=== PATIENT | female | born 1960 | race African-American/Black ===

== ENCOUNTER → 2018-09-17 | Day surgery (SDC) | payer MEDICARE ==
[2018-09-12 13:33] LABS: BASOPHILS % 0.8 % (0.0-1.0); EOSINOPHILS % 0.4 % (0.0-6.0); HEMATOCRIT 44.1 % (34.2-44.1); HEMOGLOBIN 14.6 g/dL (12.0-16.0); LYMPHOCYTES # (AUTO) 2.2 (1.0-3.2); LYMPHOCYTES % 45.5 % (18.0-39.1); MEAN CORPUSCULAR HEMOGLOBIN 33.1 pg (28-32); MEAN CORPUSCULAR HGB CONC 33.1 g/dL (31-35); MONOCYTES # (AUTO) 0.4 (0.2-0.8); MONOCYTES % 8.7 % (4.4-11.3); NEUTROPHILS # (AUTO) 2.1 (2.1-6.9); NEUTROPHILS % 44.4 % (38.7-80.0); PLATELET COUNT 250 x10e3/uL (140-360); RED BLOOD COUNT 4.41 x10e6/uL (3.6-5.1)
[~2018-09-17] MED LIST: ALPRAZOLAM1 MG PO; FENTANYL CITRATE/PF 100MCG/2 ML INJ ONE; LEVOCETIRIZINE D5 MG PO; LEVOTHYROXINE75 MCG PO; LIDOCAINE HCL 2% LOCAL INJ 5 ML SDV VIAL INJ ONE; MIDAZOLAM HCL 2 MG/2 ML VIAL ONE; PANTOPRAZOLE SO40 MG PO; PROPOFOL IV EMULSION 10 MG/ML 20 ML VIAL ONE; PROVENTIL HFA6.7 GM INH; VITAMIN D31000 UNIT PO
--- OUTSIDE RECORDS SUMMARY | 2018-09-17 08:51 | XMS REPORT | Clinical Summary ---
Author Author [facility] Address Unknown Phone Unavailable Care Team Providers Care Latrine Cleaner Name Role Phone PCP Unavailable Allergies Not on File Medications Not on file Active Problems Not on file Social History Date Tobacco Use Types Packs/Day Years Used Never Assessed Sex Assigned at Date Recorded Not on file Industry Job Start Date Occupation Not on file Not on file Not on file Travel End Travel History Travel Start No recent travel history available. Last Filed Vital Signs Not on file Plan of Treatment Health Maintenance Due Date Last Done Comments BREAST CANCER SCREENING 2010 COLONOSCOPY SCREENING 2010 SHINGLES VACCINES (#1) 2010 INFLUENZA VACCINE 09/26/2018 Results Not on fileafter 09/16/2017 Insurance Type Payer Benefit Subscriber ID Effective Phone Address Plan / Dates Group Medicare MEDICARE MEDICARE xxxxxxxxxx 2012- [employer] [facility], [place] AND Present [place] B Medicaid MEDICAID MEDICAID xxxxxxxxx 2013-Dom buckent (Home) [place] [address] Advance Directives Patient has advance care planning documents on file. For more information, bishop casey contact: Ron Virgen [address] [place] [address]
--- OUTSIDE RECORDS SUMMARY | 2018-09-17 08:51 | XMS REPORT | Clinical Summary ---
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 Normal None . R. First dorsal interosseous Normal 0 0 None . Normal Normal Normal Normal None . R. Rhomboid major Reduced 0 0 None . Normal Normal Normal Normal None . R. C5 paraspinal Incr 0 0 None . Normal Normal Normal Normal None . NERVE SUMMARY: Upper extremity NCS SENSORY: RIGHT MEDIAN: NORMAL PEAK LATENCY, NORMAL AMPLITUDE RIGHT ULNAR: BORDERLINE PEAK LATENCY, NORMAL AMPLITUDE, MAY BE RELATED TO TEMPERATURE. MOTOR: RIGHT MEDIAN: NORMAL ONSET LATENCY, NORMAL AMPLITUDE, NORMAL CONDUCTION VELOCITY RIGHT ULNAR: NORMAL ONSET LATENCY, NORMAL AMPLITUDE, NORMAL CONDUCTION VELOCITY MUSCLE SUMMARY: EMG Findings RIGHT ABDUCTOR POLLICIS BREVIS: NORMAL INSERTIONAL ACTIVITY, NO ABNORMAL SPONTANEOUS ACTIVITY, NORMAL RECRUITMENT, AND NORMAL MUAP POTENTIALS. RIGHT ANTERIOR DELTOIND: INCR INSERTIONAL ACTIVITY, 1+ FIBS, 3+ POSITIVE SHARP WAVES, DECR RECRUITMENT, AND NORMAL MUAP POTENTIALS RIGHT BICEPS BRACHII: INCR INSERTIONAL ACTIVITY, 2+ FIBS, 2+ POSITIVE SHARP WAVES, DECR RECRUITMENT, AND NORMAL MUAP POTENTIALS. RIGHT LATERAL TRICEPS: NORMAL INSERTIONAL ACTIVITY, NO ABNORMAL SPONTANEOUS ACTIVITY, NORMAL RECRUITMENT, AND NORMAL MUAP POTENTIALS. RIGHT FIRST DORSAL INTEROSSEOUS: NORMAL INSERTIONAL ACTIVITY, NO ABNORMAL SPONTANEOUS ACTIVITY, NORMAL RECRUITMENT, AND NORMAL MUAP POTENTIALS. RIGHT RHOMBOID: DECR INSERTIONAL ACTIVITY, NO ABNORMAL SPONTANEOUS ACTIVITY, FEW MOTOR UNITS. RIGHT C5 PARASPINAL: INCR INSERTIONAL ACTIVITY, NO ABNORMAL SPONTANEOUS ACTIVITY, NORMAL RECRUITMENT, AND NORMAL MUAP POTENTIALS. ATTENDING PHYSICIAN CONCLUSION: I WAS PRESENT FOR THE [place] PORTION OF THE NCS/EMG PROCEDURE WITH DR. VEGAS ON 12/13/17. I SAW AND EVALUATED THE PATIENT. I REVIEWED THE RESIDENT S NOTE AND AGREE. 1. ABNORMAL STUDY 2. ELECTRODIAGNOSTIC EVIDENCE SUGGESTIVE OF RIGHT CERVICAL RADICULOPATHY, PIN DATA MOST CONSISTENT WITH C5 LEVEL, CHRONIC WITH ONGOING DENERVATION AND REINNERVATION. 3. PLEASE CONSIDER ORDERING MRI OF C- SPINE AND CORRELATE. 4. NO ELECTRODIAGNOSTIC EVIDENCE OF RIGHT MEDIAN MONONEUROPATHY IN AREAS TESTED AT THIS TIME. 5. NO ELECTRODIAGNOSTIC EVIDENCE OF RIGHT UPPER EXTREMITY GENERALIZED NEUROPATHY OTHERWISE. (HX OF THYROID DZ) PLAN: FOLLOW UP WITH THE REFERRING PHYSICIAN. FACULTY: [facility] ELECTRODI[facility]NOSTIC [facility]ORATORY NORMAL REFERENCE VALUES FOR COMMON NERVE CONDUCTION STUDIES References used for this table from: 1. Noe and Ck, Manual of Nerve Conduction Studies, 2nd edition, 2006, [employer], [facility], [place] (for a complete listing please refer to this manual) and2. * Darrell Curry, and Rogerio, Electrodiagnostic Medicine, 2nd edition, 2002, [employer], [place], [place]. Skin temperature should be > 32 degrees Celsius in the upper limb and > 30 degrees Celsius in the lower limb. Final determination of normality will be made by Attending Physician taking in consideration conditions of testing. Motor Nerve Studies NerveCV(M/s)Onset latency (ms) Amplitude (mV) F-wave (ms) Axillary to Deltoid --<5.4 ms >4.6 mV-- Median to APB (8cm) >49 M/sec <4.5 ms >5 mV*<31.6 ms Musculocut.to Biceps --<5.6 ms > 4.0mV-- Radial to EDC (8cm) >54 M/sec <3.5 ms >4.3 mV-- Suprascapular (Supraspinatus) --<4.3 ms >1.6 mV-- (IS)--<4.8 ms >1.5 mV-- Ulnar to ADM (8cm) (W to BE) > 52 M/sec 2.3-4.4 ms>6.1 +/- 1.9 mV* <31.5 ms (BE to AE) > 43 M/sec Ulnar to FDI --<4.6 ms >5.1 mV-- Femoral to quads (above ligament) --<8.5 ms 0.2 11mV -- (below ligament) --<7.4 ms 0.2 11mV -- Peroneal to EDB (8cm) (ankle to fib head) >38 M/sec <6.5 ms >1.3 mV <61.2 ms (>2.6 mV if under 40 yo) (across knee) >42 M/sec Peroneal to TA >43 M/sec <4.9 ms >1.7 mV-- Tibial to AH (8cm) >39 M/sec <6.1 ms >4.4 mV<61.4 ms Sensory Nerve Studies Nerve CV (M/s) Peak latency (ms) Amplitude (V)-onset to peak Lat. antebrach.cut. --<2.5 ms >5 V Med. antebrach cut. --<2.6 ms >4 V Median to digit 2,3 (14cm) --<3.7 ms*>10 V (>15-19 V if under 50 yo) Radial to base thumb (10cm)--<2.8 ms >7 V Ulnar to digit 5 (14cm) --<3.7 ms*>6 V (>11-14 V if under 50 yo) Dorsal ulnar cut. (10cm) --<2.9 ms >5 V Comparison studies: Median/Radial to thumb --<3.1/3.0 ms>10/3 V Median/Ulnar transcarpal --<2.4/2.4 ms>10/4 V Median/Ulnar 4th digit--<4.1/3.9 ms>5/5 V Lat. fem. cut. (Spevak) >51 M/sec <6.0 ms 2.0 +/- 1.0 V Med. fem. cut.--<3.5 ms 3.4-7.9 V Superficial peroneal (14cm)--<4.2 ms 7.7 +/- 3.9 V Sural (14 cm)--<4.5 ms 10-50 V Plantar (14 cm) (Medial)--<3.7 ms 10-30 V (Lateral)--<3.7 ms 8-20 V Other Nerve Conductions Onset latency (ms) Amplitude (mV) H-reflex to FCR<18.9 ms> 0.8 mV H-reflex to gastrocnemius<35 ms -- Blink reflex(R1) <13 ms (R2 ipsi/contra)<40/41 ms Cranial VII (preauricular)2.8-4.1 ms (postauricular)3.2- 4/4 ms Cranial XI1.7-3.0 ms> 3-4 mV * OCCULT BLOOD ICT (10/26/2017 2:26 PM CDT) Occult Blood Negative [facility] ICT Specimen Stool Performing Organization Address City/State/Zipcode Phone Number [facility] * XRAY SHOULDER 2 VIEWS MIN (10/03/2017 9:13 AM CDT) Specimen Impressions Performed At IMPRESSION: SMS No acute osseous lesion. Hypertrophic acromioclavicular arthrosis. Signed By: Noel Manley MD, 10/03/2017 9:34 AM Narrative Performed At Right shoulder 2 views SMS HISTORY:57 yo female with pain at AC joint with obvious deformity for evaluation COMPARISON: None DISCUSSION: There is no displaced fracture or malalignment. Acromioclavicular arthrosis. Glenohumeral joint intact. Calcification within the axillary recess. Procedure Note Interface, Rad/Mammog In - 10/03/2017 9:39 AM CDT Right shoulder 2 views HISTORY: 57 yo female with pain at AC joint with obvious deformity for evaluation COMPARISON: None DISCUSSION: There is no displaced fracture or malalignment. Acromioclavicular arthrosis. Glenohumeral joint intact. Calcification within the axillary recess. IMPRESSION IMPRESSION: No acute osseous lesion. Hypertrophic acromioclavicular arthrosis. Signed By: Noel Manley MD, 10/03/2017 9:34 AM Performing Organization Address City/State/Zipcode Phone Number [facility] after 09/16/2017 Insurance Type Payer Benefit Subscriber ID Effective Phone Address Plan / Dates Group MEDICARE MEDICARE xxxxxxxxxxx 2012- [phone] Present [id number] [place] [address] [place] [id number] xxxxxxxxx 2013-P [id number] MEDICARE [place], [place] BENEF[place]IAR [id number] Y
--- OUTSIDE RECORDS SUMMARY | 2018-09-17 08:52 | XMS REPORT | Continuity of Care Document ---
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 HISTORY:Occasional marijuana use.Denied tobacco, alcohol OCCUPATION:unemployed PHYSICAL EXAMCONSTITUTIONAL: GEN APPREARANCE:NADVITALS:T: 98.8, P: 63, 16NECK:supple, non-tenderMUSCULOSKELETAL: DIGITS AND NAILS:- PITTING INSPECTION: -ATROPHY PALPATION: NL MUSCLE BULK ROM: Reduced abduction Right arm STRENGTH:5/5 UE TONE:NORMAL TONE GAIT:NO GAIT AID SPECIAL TESTS:- TINEL/PHALENSKIN: INSPECTION: NO RASH PALPATION: NL TURGORNEUROLOGIC: SENSATION: to light touch DTR:2+ B/L BCR, TRICEP, BICEPPSYCHIATRIC: ORIENTATION: TO NAME AND MEMORY: GOOD RECALL EVENTS MOOD / AFFECT: APPROPRIATE MD RESIDENT ETESAM DATE: 02/10/2017 5:39 PM INDICATION: trauma, pain. COMPARISON: None. TECHNIQUE:Volumetric acquisition of the cervical spine withoutcontrast. Axial, sagittal and coronal reconstructions. IV contrast: None.DLP: 182 mGy-cm FINDINGS: The spine is imaged from the skull base to the level of T1. No acute fracture or malalignment is identified. There are multileveldegenerative changes, most pronounced-severe at C6-7 with endplatesclerosis and spurring. Moderate degenerative changes at C4-5 and C5- 6.There is minimal anterolisthesis of C5 over C6 and C4 over C5. Minimalretrolisthesis of C6 over C7. Reversal of curvature of the cervicalspine. Severe facet degenerative changes seen at right C4-5 and C5-6levels. Mild facet degenerative changes at multiple levels. No soft tissue abnormality is identified.Minimal fluid in the left mastoid air cells.Impression IMPRESSION:1. No acute abnormality.2. Multilevel degenerative changes, severe at C6-7. This [facility] radiology report is a preliminary resident dictation untilfinalized by an attending.Changes to this preliminary report may occurin an additional preliminary or finalized version. Dictated By: Celso Bowles MD, 02/10/2017 6:57 PM I have reviewed the study and agree with the findings in this report. Signed By: Burton Kincaid MD, 02/10/2017 7:17 PM EDA [facility] EDX SensoryNerve / Sites Rec. Site Distance Onset Chapo Onset Lat Peak Lat Amp Temp. mm m/s ms ms V C R Median - Digit III (Antidromic) Wrist Dig III 140 48.9 2.9 3.5 22.7 32.7 R Ulnar - Digit V (Antidromic) Wrist Dig V 140 48.0 2.9 3.8 20.6 32.5 MotorNerve / Sites Rec. Site Distance Velocity Latency [...] Normal Normal Normal Normal None . NERVE SUMMARY:Upper extremity NCSSENSORY:RIGHT MEDIAN: NORMAL PEAK LATENCY, NORMAL AMPLITUDE RIGHT ULNAR: BORDERLINE PEAK LATENCY, NORMAL AMPLITUDE, MAY BE RELATED TO TEMPERATURE. MOTOR:RIGHT MEDIAN: NORMAL ONSET LATENCY, NORMAL AMPLITUDE, NORMAL CONDUCTION VELOCITYRIGHT ULNAR: NORMAL ONSET LATENCY, NORMAL AMPLITUDE, NORMAL CONDUCTION VELOCITY MUSCLE SUMMARY:EMG FindingsRIGHT ABDUCTOR POLLICIS BREVIS: NORMAL INSERTIONAL ACTIVITY, NO ABNORMAL SPONTANEOUS ACTIVITY, NORMAL RECRUITMENT, AND NORMAL MUAP POTENTIALS. RIGHT ANTERIOR DELTOIND: INCR INSERTIONAL ACTIVITY, 1+ FIBS, 3+ POSITIVE SHARP WAVES, DECR RECRUITMENT, AND NORMAL MUAP POTENTIALS RIGHT BICEPS BRACHII: INCR INSERT IONAL ACTIVITY, 2+ FIBS, 2+ POSITIVE SHARP WAVES, [...] AND EVALUATED THE PATIENT. I REVIEWED THE RESIDENTS NOTE AND AGREE. 1. ABNORMAL STUDY2. ELECTRODIAGNOSTIC EVIDENCE SUGGESTIVE OF RIGHT CERVICAL RADICULOPATHY, PIN DATA MOST CONSISTENT WITH C5 LEVEL, CHRONIC WITH ONGOING DENERVATION AND REINNERVATION.3. PLEASE CONSIDER ORD ERING MRI OF C- SPINE AND CORRELATE.4. NO ELECTRODIAGNOSTIC EVIDENCE OF RIGHT MEDIAN MONONEUROPATHY IN AREAS TESTED AT THIS TIME.5. NO ELECTRODIAGNOSTIC EVIDENCE OF RIGHT UPPER EXTREMITY GENERALIZED NEUROPATHY OTHERWISE. (HX OF THYROID DZ) PLAN: FOLLOW UP WITH THE REFERRING PHYSICIAN. FACULTY: [facility] ELECTRODIAGNOSTIC LABORATORYNORMAL REFERENCE VALUES FOR COMMON NERVE CONDUCTION STUDIESReferences used for this table from: 1. Noe and Ck, Manual of Nerve Conduction Studies, 2nd edition, 2006, [employer], [place], [place] (for a compl ete listing please refer to this manual) and2. * Darrell Curry, and Rogerio, Electrodiagnostic Medicine, 2nd edition, 2002, [employer], [place], [place].Skin temperature should be > 32 degrees Celsius in the upper limb and > 30 degrees Celsius in the lower limb.Final determination of normality will be made by Attending Physician taking in consideration conditions of testing.Motor Nerve Studies NerveCV(M/s)Onset latency (ms) Amplitude (mV) F-wave (ms)Axillary to Deltoid --4.6 mV--Median to APB (8cm) >49 M/sec 5 mV*Musculocut.to Biceps -- 4.0mV--Radial to EDC (8cm) >54 M/sec 4.3 mV--Suprascapular (Supraspinatus) --1.6 mV--(IS)--1.5 mV--Ulnar to ADM (8cm) (W to BE) > 52 M/sec 2.3-4.4 ms>6.1 +/- 1.9 mV* (BE to AE) > 43 M/secUlnar to FDI --5.1 mV--Femoral to quads (above ligament) -- (below ligament) --Peroneal to EDB (8cm) (ankle to fib head) >38 M/sec 1.3 mV (>2.6 mV if under 40 yo) (across knee) >42 M/secPeroneal to TA >43 M/sec 1.7 mV--Tibial to AH (8cm) >39 M/sec 4.4 mV Sensory Nerve StudiesNerve CV (M/s) Peak latency (ms) Amplitude (V)-onset to peakLat. antebrach.cut. --5 VMed. antebrach cut. --4 VMedian to digit 2,3 (14cm) --10 V (>15-19 V if under 50 yo)Radial to base thumb (10cm)--7 VUlnar to digit 5 (14cm) --6 V (>11-14 V if under 50 yo)Dorsal ulnar cut. (10cm) --5 VComparison studies:Median/Radial to thumb --10/3 VMedian/Ulnar transcarpal --10/4 VMedian/Ulnar 4th digit--5/5 VLat. fem. cut. (Spevak) >51 M/sec Med. fem. cut.--Superficial peroneal (14cm)--Sural (14 cm)--Plantar (14 cm) (Medial)-- (Lateral)--Other Nerve Conductions Onset latency (ms) Amplitude (mV)H-reflex to FCR 0.8 mVH-reflex to gastrocnemiusBlink reflex(R1) (R2 ipsi/contra)Cranial VII (preauricular)2.8-4.1 ms(postauricular)3.2- 4/4 msCranial XI1.7-3.0 ms> 3-4 mV 12/13/2017 [facility] OCCULT BLOOD ICT <td ID="[id number]">Occult Blood ICT</td><td>Negative</td><td>NEG</td><td>ACR HOME LAB</td><td ID="[id number]"/> Negative NEG 10/26/2017 [facility] CARDIAC ENZYMES Troponin-I <0.02 0.00 - 0.40 05/29/2017 [facility] CHEM PANEL eGFR 101 05/29/2017 Result Comment: The eGFR is calculated using the CKD-EPI formula. In most young, healthy individuals the eGFR will be >90 mL/min/1.73m2. The eGFR declines with age. An eGFR of 60-89 may be normal in some populations, particularly the elderly, for whom the CKD-EPI formula has not been extensively validated. Use of the eGFR is not recommended in the following populations:

Individuals with unstable creatinine concentrations, including patients and those with serious co-morbid conditions.

Patients with extremes in muscle mass or diet.

The data above are obtained from the National Kidney Disease Education Program (NKDEP) which additionally recommends that when the eGFR is used in patients with extremes of body mass index for purposes of drug dosing, the eGFR should be multiplied by the estimated BMI. [facility] CHEM PANEL AGAP 11.8 10.0 - 20.0 05/29/2017 [facility] CHEM PANEL Calcium Lvl 8.8 8.5 - 10.5 05/29/2017 [facility] CHEM PANEL CO2 25 24 - 32 05/29/2017 [facility] CHEM PANEL Chloride Lvl 106 95 - 109 05/29/2017 [facility] CHEM PANEL BUN 8 7 - 22 05/29/2017 [facility] CHEM PANEL Glucose Lvl 87 70 - 99 05/29/2017 [facility] CHEM PANEL Potassium Lvl 3.8 3.5 - 5.1 05/29/2017 [facility] CHEM PANEL Sodium Lvl 139 135 - 145 05/29/2017 [facility] CHEM PANEL Creatinine Lvl 0.76 0.50 - 1.40 05/29/2017 [facility] CARDIAC ENZYMES Troponin-I <0.02 0.00 - 0.40 05/29/2017 [facility] CARDIAC ENZYMES Troponin-I <0.02 0.00 - 0.40 05/28/2017 [facility] CHEM PANEL eGFR 86 05/28/2017 Result Comment: The eGFR is calculated using the CKD-EPI formula. In most young, healthy individuals the eGFR will be >90 mL/min/1.73m2. The eGFR declines with age. An eGFR of 60-89 may be normal in some populations, particularly the elderly, for whom the CKD-EPI formula has not been extensively validated. Use of the eGFR is not recommended in the following populations:

Individuals with unstable creatinine concentrations, including patients and those with serious co-morbid conditions.

Patients with extremes in muscle mass or diet.

The data above are obtained from the National Kidney Disease Education Program (NKDEP) which additionally recommends that when the eGFR is used in patients with extremes of body mass index for purposes of drug dosing, the eGFR should be multiplied by the estimated BMI. [facility] CHEM PANEL Chloride Lvl 101 95 - 109 05/28/2017 [facility] CHEM PANEL CO2 29 24 - 32 05/28/2017 [facility] CHEM PANEL Calcium Lvl 9.6 8.5 - 10.5 05/28/2017 [facility] CHEM PANEL BUN 10 7 - 22 05/28/2017 [facility] CHEM PANEL Creatinine Lvl 0.87 0.50 - 1.40 05/28/2017 [facility] CHEM PANEL Glucose Lvl 92 70 - 99 05/28/2017 [facility] CHEM PANEL Sodium Lvl 137 135 - 145 05/28/2017 [facility] CHEM PANEL Potassium Lvl 4.3 3.5 - 5.1 05/28/2017 [facility] CHEM PANEL AGAP 11.3 10.0 - 20.0 05/28/2017 [facility] HEMATOLOGY Monocytes # 0.3 0.0 - 0.8 05/28/2017 [facility] HEMATOLOGY Basophils 0.9 0.0 - 1.0 05/28/2017 [facility] HEMATOLOGY Lymphocytes # 2.1 1.0 - 5.5 05/28/2017 [facility] HEMATOLOGY Segs 39.4 45.0 - 75.0 05/28/2017 [facility] HEMATOLOGY Monocytes 8.6 2.0 - 12.0 05/28/2017 [facility] HEMATOLOGY Eosinophils 0.5 0.0 - 4.0 05/28/2017 [facility] HEMATOLOGY Lymphocytes 50.6 20.0 - 40.0 05/28/2017 [facility] HEMATOLOGY Segs-Bands # 1.6 1.5 - 8.1 05/28/2017 [facility] HEMATOLOGY MPV 7.2 7.4 - 10.4 05/28/2017 [facility] HEMATOLOGY RBC 4.35 4.20 - 5.40 05/28/2017 [facility] HEMATOLOGY WBC 4.1 3.7 - 10.4 05/28/2017 [facility] HEMATOLOGY Hct 43.2 36.0 - 48.0 05/28/2017 [facility] HEMATOLOGY Hgb 14.6 12.0 - 16.0 05/28/2017 [facility] HEMATOLOGY MCH 33.6 27.0 - 31.0 05/28/2017 [facility] HEMATOLOGY MCV 99.3 80.0 - 98.0 05/28/2017 [facility] HEMATOLOGY MCHC 33.8 32.0 - 36.0 05/28/2017 [facility] HEMATOLOGY Platelet 222 133 - 450 05/28/2017 [facility] HEMATOLOGY RDW 13.0 11.5 - 14.5 05/28/2017 [facility] BLOOD BANK RESULTS Antibody Scrn Negative (06/11/15 3:15 PM) 06/11/2015 [facility] BLOOD BANK RESULTS ABO/Rh O POS 06/11/2015 [facility] CHEM PANEL Lactic Acid Lvl 1.5 0.5 - 2.2 06/11/2015 [facility] ELECTROLYTES AGAP 13.8 10.0 - 20.0 06/11/2015 [facility] ELECTROLYTES Chloride Lvl 102 95 - 109 06/11/2015 [facility] ELECTROLYTES CO2 24 24 - 32 06/11/2015 [facility] ELECTROLYTES Calcium Lvl 9.3 8.5 - 10.5 06/11/2015 [facility] ELECTROLYTES Potassium Lvl 3.8 3.5 - 5.1 06/11/2015 [facility] ELECTROLYTES Sodium Lvl 136 135 - 145 06/11/2015 [facility] ELECTROLYTES Glucose Lvl 106 70 - 99 06/11/2015 [facility] ELECTROLYTES BUN 12 7 - 22 06/11/2015 [facility] ELECTROLYTES Creatinine Lvl 1.03 0.50 - 1.40 06/11/2015 [facility] ELECTROLYTES eGFR 71 06/11/2015 Result Comment: The eGFR is calculated using the CKD-EPI formula. In most young, healthy individuals the eGFR will be >90 mL/min/1.73m2. The eGFR declines with age. An eGFR of 60-89 may be normal in some populations, particularly the elderly, for whom the CKD-EPI formula has not been extensively validated. Use of the eGFR is not recommended in the following populations:

Individuals with unstable creatinine concentrations, including patients and those with serious co-morbid conditions.

Patients with extremes in muscle mass or diet.

The data above are obtained from the National Kidney Disease Education Program (NKDEP) which additionally recommends that when the eGFR is used in patients with extremes of body mass index for purposes of drug dosing, the eGFR should be multiplied by the estimated BMI. [facility] HEMATOLOGY Max Amp 66 52 - 71 06/11/2015 [facility] HEMATOLOGY G-value 9.9 5.0 - 11.6 06/11/2015 [facility] HEMATOLOGY Estimated % Lysis Rapid 2.7 0.0 - 7.5 06/11/2015 [facility] HEMATOLOGY Angle 79 64 - 80 06/11/2015 [facility] HEMATOLOGY ACT (TEG) Rapid 113 86 - 118 06/11/2015 [facility] HEMATOLOGY Rapid TEG Sample Type Citrated Whole Blood (06/11/15 2:40 PM) 06/11/2015 [facility] HEMATOLOGY R-time 0.7 0.4 - 0.7 06/11/2015 [facility] HEMATOLOGY [place] Rapid 0.6 06/11/2015 [facility] HEMATOLOGY K-time 0.8 0.6 - 2.3 06/11/2015 [facility] HEMATOLOGY MPV 7.3 7.4 - 10.4 06/11/2015 [facility] HEMATOLOGY WBC 5.6 3.7 - 10.4 06/11/2015 [facility] HEMATOLOGY MCH 32.9 27.0 - 31.0 06/11/2015 [facility] HEMATOLOGY RBC 4.64 4.20 - 5.40 06/11/2015 [facility] HEMATOLOGY RDW 12.7 11.5 - 14.5 06/11/2015 [facility] HEMATOLOGY MCHC 32.8 32.0 - 36.0 06/11/2015 [facility] HEMATOLOGY MCV 100.2 80.0 - 98.0 06/11/2015 [facility] HEMATOLOGY Hct 46.5 36.0 - 48.0 06/11/2015 [facility] HEMATOLOGY Platelet 233 133 - 450 06/11/2015 [facility] HEMATOLOGY Hgb 15.3 12.0 - 16.0 06/11/2015 [facility] HEMATOLOGY Macrocyte 1+ *ABN* (06/11/15 2:40 PM) None Seen 06/11/2015 [facility] HEMATOLOGY Basophils # 0.1 0.0 - 0.2 06/11/2015 [facility] HEMATOLOGY Basophils 1.0 0.0 - 1.0 06/11/2015 [facility] HEMATOLOGY Eosinophils 0.6 0.0 - 4.0 06/11/2015 [facility] HEMATOLOGY Monocytes 6.3 2.0 - 12.0 06/11/2015 [facility] HEMATOLOGY Lymphocytes 36.6 20.0 - 40.0 06/11/2015 [facility] HEMATOLOGY Segs 55.5 45.0 - 75.0 06/11/2015 [facility] HEMATOLOGY Monocytes # 0.4 0.0 - 0.8 06/11/2015 [facility] HEMATOLOGY Segs-Bands # 3.1 1.5 - 8.1 06/11/2015 [facility] HEMATOLOGY Lymphocytes # 2.0 1.0 - 5.5 06/11/2015 [facility] TOXICOLOGY Etoh (%) <0.003 06/11/2015 [facility] TOXICOLOGY Ethanol Lvl <3 06/11/2015 [facility] Pathology Reports No Data Provided for This Section Diagnostic Reports Report Value Date Source Abdomen wo contrast MRI EXAM: MR ABDOMEN WITHOUT CONTRAST-MRCP DATE: 12/22/2017 12:24 PM CDT INDICATION: - dilated pancreatic duct ADDITIONAL INFORMATION: None. COMPARISON: CT abdomen 11/08/2017 at 06/11/2015. TECHNIQUE: Multiplanar, multisequence acquisition of the abdomen without intravenous contrast, per MRCP protocol. IV contrast: None. Enteric contrast: None. FINDINGS: Lines, tubes and hardware: None. Lower thorax: Clear. Hepatobiliary: Liver: Normal. Gallbladder and cystic duct: Normal. Intrahepatic bile ducts: Normal. Extrahepatic bile duct: Normal. CBD measures up to 6 mm in diameter. Pancreas: Normal. Pancreatic duct is dilated in the head and proximal body, measuring up to 7 mm in diameter. There is no duct cut off or intraductal calculus. There is thinning of parenchyma in this region(better appreciated on recent CT scan).. A dilated side branch duct is seen in the tail region. No focal mass or inflammatory changes. Spleen: Normal. Adrenals: Normal. Kidneys and ureters: Normal. Gastrointestinal tract: Normal caliber. Peritoneum, mesentery and retroperitoneum: No free air, ascites or loculated fluid. Lymph nodes: Normal. Vasculature: Normal. Bones: Normal. Soft tissues: Normal. IMPRESSION: 1. Dilated main pancreatic duct in the head and proximal body is unchanged since 06/11/2015 CT. It is likely due to scarring from chronic pancreatitis given the adjacent focal pancreatic atrophy and dilated side branch duct in the pancreatic tail. However main duct IPMN may have a similar appearance and can be ruled out by endoscopic ultrasound. 12/22/2017 [facility] Abdomen/Pelvis w/wo IV contrast CT EXAM: CT ABDOMEN AND PELVIS WITHOUT AND WITH CONTRAST DATE: 11/08/2017 2:02 PM CDT INDICATION: - dilated pancreatic duct COMPARISON: 06/11/2015 TECHNIQUE: Volumetric CT acquisition of the abdomen and pelvis before and after the intravenous administration contrast. Axial, coronal and sagittal reconstructions. IV contrast: 100 mL Omnipaque 350 Oral contrast: 50 mL of Volumen DLP: 1468.28 mGy-cm FINDINGS: Lines and tubes: None. Liver: Normal. Biliary tree: There is mild prominence of the central biliary collecting system, especially the left duct which measures 3.5 mm just proximal to the arnulfo hepatis. The extrahepatic common bile duct in the pancreatic head is 6.5 mm in diameter (series 4 image 45). More distally in the pancreatic head the common bile duct is 4.6 mm in diameter. The pancreatic duct in the pancreas in the distal body is 5.7 mm in AP dimension. The pancreatic duct in the pancreatic tail is 1.6 mm in diameter. Gallbladder: Normal. No CT evidence of gallstones. Pancreas: There is no focal pancreatic mass to account for the ductal dilatation. There is no peripancreatic inflammatory change. Spleen: The spleen is normal. Adrenals: Normal. Kidneys and ureters: Normal. Bladder: Normal. Reproductive organs: No CT abnormality. Gastrointestinal tract: Normal caliber. Appendix: Normal Peritoneum and retroperitoneum: No lymphadenopathy, ascites or free air. No other fluid collection. Vasculature: There are prominent calcifications in the thakkar of the distal abdominal aorta without aneurysm. The calcifications extend into the iliac systems. Bones: There are mild degenerative changes in the lumbar spine. These are most prominent at L5-S1 where there is endplate sclerosis and disc space loss. Small osteophytes are present multiple levels. No suspicious lytic or blastic lesions are present. Lower thorax: Clear. Soft tissues: Normal. IMPRESSION: 1. There is definite ductal dilatation in the pancreas within the head and neck region. There are etiology for this dilatation is not evident. There is also dilatation of the common bile duct distally and within the pancreatic head, and there is no obvious etiology for this as well. Suggest correlate clinically for any laboratory abnormalities related to the liver or gallbladder. If further evaluation is needed, an MRCP with gadolinium enhanced images of the pancreas are suggested. Alternatively consult with gastroenterology for possible ERCP and endoscopic ultrasound with biopsy of any suspicious mass. 11/08/2017 [facility] XRAY SHOULDER 2 VIEWS MIN IMPRESSION: No acute osseous lesion. Hypertrophic acromioclavicular arthrosis. Signed By: Noel Manley MD, 10/03/2017 9:34 AM Right shoulder 2 views HISTORY:57 yo female with pain at AC joint with obvious deformityfor evaluation COMPARISON: None DISCUSSION:There is no displaced fracture or malalignment.Acromioclavicular arthrosis. Glenohumeral joint intact.Calcification within the axillary recess. Interface, Rad/Mammog In - 10/03/2017 9:39 AM CDTRight shoulder 2 views HISTORY: 57 yo female with pain at AC joint with obvious deformity for evaluation COMPARISON: None DISCUSSION: There is no displaced fracture or malalignment. Acromioclavicular arthrosis. Glenohumeral joint intact. Calcification within the axillary recess. IMPRESSION IMPRESSION: No acute osseous lesion. Hypertrophic acromioclavicular arthrosis. Signed By: Noel Manley MD, 10/03/2017 9:34 AM 10/03/2017 [facility] Shoulder series DX EXAM: XR RIGHT SHOULDER 3 VIEWS DATE: 09/04/2017 2:24 PM CDT INDICATION: - shoulder pain COMPARISON: None. TECHNIQUE: AP views in internal and external rotation, and an axillary view of the shoulder FINDINGS: No acute fracture or malalignment is identified. There is sclerosis and subchondral cystic change at the acromioclavicular joint. Spur is noted at the undersurface of the acromion. Small calcification noted along the inferior glenoid neck. IMPRESSION: No acute abnormality in the right shoulder joint. Moderate-severe right acromioclavicular joint osteoarthrosis. Small spur on the undersurface of the acromion predisposing to rotator cuff pathology. 09/04/2017 [facility] Abdomen complete US EXAM: US ABDOMEN COMPLETE DATE: 08/14/2017 10:14 AM CDT INDICATION: - R10.13 Epigastric pain COMPARISON: None. TECHNIQUE: Multiplanar grayscale and color Doppler ultrasound images of the abdomen. FINDINGS: Liver: Liver is normal in size measuring 14.9 cm and demonstrates normal echogenicity. Portal vein: 1.3 cm with normal directional blood flow Bile ducts: Common bile duct diameter: 0.6 cm. Intrahepatic ducts: Nondilated Gallbladder:Normal Pancreas: Head and uncinate process: No focal lesions. Main pancreatic duct is dilated measuring at 5 mm. Body and tail: Not seen. Spleen: Craniocaudal length: 7.9 cm. Mass or focal lesion (size and location): None. Right kidney: Hydronephrosis: None Size: 9.6 x 4.3 x 5.5 cm. Echogenicity: Normal. Mass/Stone/Cyst (size and location): None. Left kidney: Hydronephrosis: None Size: 10.6 x 5 x 4.8 cm. Echogenicity: Normal. Mass/Stone/Cyst (size and location): None. Abdominal aorta and IVC: Visualized portions are normal. Ascites: None. IMPRESSION: 1. Dilated main pancreatic duct measuring at 5 mm. Correlate for chronic pancreatitis. 08/14/2017 [facility] Chest 2 views DX EXAM: XR CHEST 2 VIEWS DATE: 05/28/2017 at 1155 hours INDICATION: chest pain COMPARISON: 06/11/2015 TECHNIQUE: PA and lateral chest radiographs FINDINGS: Lines, tubes and hardware: None. Lungs and pleura: A calcified granuloma is again identified within the left midlung. The lungs are mildly hyperinflated. Otherwise no pulmonary or pleural based abnormality is identified. Pulmonary vascularity is normal. Heart and mediastinum: The heart size is at the upper limits of normal, unchanged. The mediastinal contours are normal. Bones: No acute bony abnormality is identified. IMPRESSION: Hyperinflated lungs with borderline heart size. No acute abnormality. 05/28/2017 [facility] Knee 3 views DX EXAM: XR RIGHT KNEE 3 VIEWS EXAM: RIGHT TIBIA-FIBULA 2 VIEWS DATE: 06/11/2015 2:13 PM CDT INDICATION: Pain Post Trauma COMPARISON: None TECHNIQUE: AP, lateral and oblique radiographs of the right knee. AP and lateral radiographs of the right tibia-fibula. FINDINGS: No acute fracture or malalignment is identified in the right knee, tibia or fibula. Chronic appearing ossific densities inferior medial to the medial malleolus likely represent old, ununited avulsed fracture fragments. Subchondral sclerosis of the tibiotalar joint with osteophyte formation is also noted. At the knee, tricompartment small osteophytes are present, with medial compartment joint space narrowing without subarticular sclerosis or cystic change. There is no excessive knee or ankle joint fluid. No soft tissue abnormality is identified. IMPRESSION: 1. No acute bone abnormality. 2. 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 3. Right knee tricompartmental osteoarthrosis, most notably moderate in the medial compartment. 06/11/2015 [facility] Chest 1view DX EXAM: XR CHEST 1 VIEW DATE: 06/11/2015 2:12 PM CDT INDICATION: Pain Post Trauma COMPARISON: Chest CT of the same date TECHNIQUE: AP chest FINDINGS: Lines and tubes: None. Lungs and pleura: Calcified left lower lobe granuloma is noted in the left midlung. The right upper lobe pulmonary nodule is not well visualized radiographically. Remainder of the lungs are clear. No pleural effusion or pneumothorax. Heart and mediastinum: The heart size is normal for technique. The mediastinal contours are normal. Bones: No acute bony abnormality is identified. IMPRESSION: 1. No acute cardiopulmonary abnormality. 2. Right upper lobe pulmonary nodule seen on the same date chest CT is not visualized radiographically. 06/11/2015 [facility] Tibia fibula series DX EXAM: XR RIGHT KNEE 3 VIEWS EXAM: RIGHT TIBIA-FIBULA 2 VIEWS DATE: 06/11/2015 2:13 PM CDT INDICATION: Pain Post Trauma COMPARISON: None TECHNIQUE: AP, lateral and oblique radiographs of the right knee. AP and lateral radiographs of the right tibia-fibula. FINDINGS: No acute fracture or malalignment is identified in the right knee, tibia or fibula. Chronic appearing ossific densities inferior medial to the medial malleolus likely represent old, ununited avulsed fracture fragments. Subchondral sclerosis of the tibiotalar joint with osteophyte formation is also noted. At the knee, tricompartment small osteophytes are present, with medial compartment joint space narrowing without subarticular sclerosis or cystic change. There is no excessive knee or ankle joint fluid. No soft tissue abnormality is identified. IMPRESSION: 1. No acute bone abnormality. 2. 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 3. Right knee tricompartmental osteoarthrosis, most notably moderate in the medial compartment. 06/11/2015 [facility] Chest/Abdomen/Pelvis w IV contrast CT EXAM: CT CHEST WITH CONTRAST EXAM: CT ABDOMEN AND PELVIS WITH CONTRAST DATE: 06/11/2015 2:12 PM CDT INDICATION: Pain Post Trauma COMPARISON: None. TECHNIQUE: Volumetric CT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
--- OUTSIDE RECORDS SUMMARY | 2018-09-17 08:53 | XMS REPORT | Clinical Summary ---
Author Author [facility] Organization [facility] Address Unknown Phone Unavailable Care Team Providers Care Bread Wrapper Operator Name Role Phone Izzy Fang MD PCP [...] by mouth 3 Essential hypertension, daily. benign 09/05/2017 Discontinued traMADol (ULTRAM) 50 mg Take 1 tablet 90 tablet 2 tabletIndications: by mouth 3 Unspecified every 8 hours hypothyroidism, Back pain as needed for Pain. 09/15/2017 tiZANidine (ZANAFLEX) 4 Take 1 tablet 30 tablet 0 mg tabletIndications: by mouth 3 8 Acute neck pain times daily for 10 days. 10/03/2017 Discontinued Meloxicam 7.5 mg Take 7.5 [...] End Date Other Facility Date Administered Medication Discontinued ketorolac (TORADOL) 30 mg IV PUSH ONCE 09/08/19 injection 30 18 8 mgIndications: Torticollis, spasmodic, Patient receives primary care from outside this practice Ended ketorolac (TORADOL) 30 mg IM ONCE 09/08/19 injection 30 18 8 mgIndications: Torticollis, spasmodic Ended triamcinolone acetonide 40 mg IX ONCE 10/27/19 (KENALOG-40) injection 40 18 8 mgIndications: Synovitis of right knee, Synovitis of left knee Ended lidocaine 1 % (XYLOCAINE) 1 mL IJ ONCE 10/27/19 injection 1 18 8 mLIndications: Synovitis of right knee, Synovitis of left knee Active Problems Problem Noted Date Decreased functional [...] Encounters Care Team Description Date Type Specialty Tito Blanco PT Chronic neck pain (Primary [...] right shoulder 07/04/2018 Therapy Physical Therapy 07/04/2018 Travel Tito Blanco PT Decreased functional mobility and endurance; Chronic neck pain; Decreased range of motion of right shoulder 06/20/2018 Therapy Physical Therapy 06/20/2018 Travel Izzy Fang MD Cervical radiculopathy at C5 06/04/2018 Refill [facility] Tito Blanco PT Decreased functional mobility and endurance (Primary Dx); Chronic neck pain; Decreased range of motion of right shoulder 05/23/2018 Therapy Physical Therapy 05/23/2018 Travel Francis, Habeeblai, PT Decreased functional mobility and endurance (Primary Dx); Chronic neck pain; Decreased range of motion of right shoulder 04/25/2018 Therapy Physical Therapy Tito Blanco, PT Decreased functional mobility and endurance (Primary Dx); Chronic neck pain; Decreased range of motion of right shoulder 04/04/2018 Therapy Physical Therapy 04/04/2018 Travel Tito Blanco, PT Decreased functional mobility and endurance (Primary Dx); Chronic neck pain; Decreased range of motion of right shoulder 03/28/2018 Therapy Physical Therapy FrancisShandraeeopal, PT Decreased functional mobility and endurance (Primary Dx); Chronic neck pain; Decreased range of motion of right shoulder 03/14/2018 Therapy Physical Therapy 03/14/2018 Travel Tito Blanco, PT Decreased functional mobility and endurance (Primary Dx); Chronic neck pain; Decreased range of motion of right shoulder 02/21/2018 Therapy Physical Therapy Tito Blanco, PT Decreased functional mobility and endurance (Primary Dx); Chronic neck pain; Decreased range of motion of right shoulder 02/14/2018 Therapy Physical Therapy Tito Blanco, PT Decreased functional mobility and endurance (Primary [...] Procedure Visit [facility] MD Pettis, Renee D, PA Synovitis of [...] both knees 10/03/2017 Orders Only Family Practice Izzy Fang MD Torticollis, spasmodic (Primary Dx); Patient receives primary care from outside this practice 09/07/2017 Office Visit Family Practice Jose Platt RN Shoulder Pain (ask my nurse request ) 09/07/2017 Telephone Family Practice Grace David RN 09/06/2017 Nurse Triage Chris Talbot MD Rode, Rashmi, MD Acute neck pain (Primary Dx); S/P thyroidectomy; Patient receives primary care from outside this practice 09/05/2017 Office Visit Family Practice after 08/25/2017 Immunizations Name Administration Dates Next Due Influenza [...] Signs Reading Time Taken Comments Vital Sign 139/78 08/19/2018 12:01 PM CDT Blood Pressure 55 08/19/2018 12:01 PM CDT Pulse 36.8 C (98.3 F) 08/19/2018 12:01 PM CDT Temperature 18 08/19/2018 12:01 PM CDT Respiratory Rate - - Oxygen Saturation - - Inhaled Oxygen Concentration 66.7 kg (147 lb) 08/19/2018 12:01 PM CDT Weight 172.7 cm (5' 8") 08/19/2018 12:01 PM CDT Height 22.35 08/19/2018 12:01 PM CDT Body Mass Index Plan of Treatment Care Team Description Date Type Specialty Cristina-Rolnad Avila MD [address] [place], [place] [id number] 10/11/2018 Office Visit Family Practice Health Maintenance Due Date Last Done Comments [...] Comments Procedure Name Priority Date/Time Associated Diagnosis EMG CONSULT Routine 12/13/2017 Right arm weakness [...] of 9:13 AM CDT right shoulder after 08/25/2017 Results * EMG CONSULT (12/13/2017 1:00 PM CDT) Narrative Performed At Janine David MD 12/14/2017 11:34 AM [facility], DEPT PMR [address] [place] [address] ELECTROMYOGRAPHY REPORT NAME : GAIL HENDERSON GENDER: [...] to lifting heavy potato sacks while in assisted.+ tingling, numbness in Right finger tips.+ neck [...] UP WITH THE REFERRING PHYSICIAN. FACULTY: [facility] ELECTRODIAGNOSTIC LABORATORY NORMAL REFERENCE VALUES FOR COMMON NERVE CONDUCTION STUDIES References used for this table from: 1. Noe and Ck, Manual of Nerve Conduction Studies, 2nd edition, 2006, [employer], [place], [place] (for a complete listing please refer to this manual) and2. * Darrell Curry, and Rogerio, Electrodiagnostic Medicine, 2nd edition, 2002, [employer], [place], [place]. Skin temperature should be > 32 [...] At Janine David MD 12/14/2017 11:34 AM [facility], DEPT PMR [address] [place] [address] ELECTROMYOGRAPHY REPORT NAME : GAIL HENDERSON GENDER: [...] to lifting heavy potato sacks while in assisted.+ tingling, numbness in Right finger tips.+ neck [...] Multilevel degenerative changes, severe at C6-7. This [facility] radiology report is a preliminary resident dictation until finalized by an attending.Changes to this preliminary report may occur in an additional preliminary or finalized version. Dictated By: Celso Bowles MD, 02/10/2017 6:57 PM I have reviewed the study and agree with the findings in this report. Signed By: Burton Kincaid MD, 02/10/2017 7:17 PM [facility] Sensory Nerve / Sites Rec. [...] UP WITH THE REFERRING PHYSICIAN. FACULTY: [facility] ELECTRODIAGNOSTIC LABORATORY NORMAL REFERENCE VALUES FOR COMMON NERVE CONDUCTION STUDIES References used for this table from: 1. Noe and Ck, Manual of Nerve Conduction Studies, 2nd edition, 2006, [employer], [place], [place] (for a complete listing please refer to this manual) and2. * Darrell Curry, and Rogerio, Electrodiagnostic Medicine, 2nd edition, 2002, [employer], [place], [place]. Skin temperature should be > 32 [...] 2:26 PM CDT) Occult Blood Negative [facility] ICT Specimen Stool Performing Organization Address City/State/Zipcode Phone Number [facility] * ARTHROCENTESIS -ASPIRATION/INJECTION, MAJOR JOINT (10/26/2017 11:49 AM CDT) Only the most recent of 2 results within the time period is included. Narrative Performed At Carleen Mckay, [facility] 10/26/20172:23 PM Arthrocentesis -Aspiration/Injection, Major Joint Date/Time: 10/26/2017 11:52 AM Performed by: CARLEEN MCKAY Authorized by: TO BAI Indications: pain Body area: knee Joint: right knee Local anesthesia used: no Anesthesia: Local anesthesia used: no Sedation: Patient sedated: no Preparation: Patient was prepped and draped in the usual sterile fashion. Ultrasound guidance: no Approach: medial Triamcinolone amount: 40 mg Lidocaine 1% amount: 1 mL Patient tolerance: Patient tolerated the procedure well with no immediate complications * XRAY SHOULDER 2 VIEWS MIN (10/03/2017 9:13 AM CDT) Specimen Impressions Performed At IMPRESSION: [facility] No acute osseous lesion. Hypertrophic acromioclavicular arthrosis. [...] AM Performing Organization Address City/State/Zipcode Phone Number [facility] after 08/25/2017 Insurance Type Payer Benefit Subscriber ID Effective Phone Address Plan / Dates Group MEDICARE MEDICARE xxxxxxxxxxx 2012- [phone] [address] Present [id number] [place] [address] [place] MEDICA[place] [id number] xxxxxxxxx 2013-P [phone] [id number] MEDICARE [place], [place] BENEFICIAR [phone] Y
--- OUTSIDE RECORDS SUMMARY | 2018-09-17 08:53 | XMS REPORT | Clinical Summary ---
Author Author [facility] Organization [facility] Address Unknown Phone Unavailable Care Team Providers Care Medical Instrument Technician Name Role Phone Izzy Fang MD PCP [...] shoulder pain, unspecified chronicity Active gabapentin (NEURONTIN) Take 1 90 capsule 1 100 mg capsule by 8 capsuleIndications: mouth 3 times Cervical radiculopathy at daily. C5 10/03/2017 Discontinued amLODIPine (NORVASC) 5 mg [...] 8 Primary osteoarthritis of daily. both knees Status Hospital, Clinic, or Ordered Dose Route [...] left knee Active Problems Problem Noted Date Right shoulder pain 10/03/2017 Overweight 10/03/2017 Patient [...] Description Date Type Specialty Tito Blanco PT Decreased functional mobility and [...] Synovitis of left knee 10/26/2017 Office Visit [facility] Patricia Bunch Screen for colon cancer 10/26/2017 Orders Only [facility] Izzy Fang MD Right arm weakness (Primary Dx); Right shoulder pain, unspecified chronicity; Screen for colon cancer 10/18/2017 Office Visit [facility] Gabrielle Wheat PA Pain and swelling of right shoulder 10/03/2017 Ancillary Radiology Procedure Gabrielle Wheat PA Primary osteoarthritis of both knees (Primary Dx); Patient receives primary care from outside this practice; Right shoulder pain, unspecified chronicity; Essential hypertension, benign; Dietary counseling for Above Normal BMI; Overweight; BMI 26.0-26.9,adult 10/03/2017 Office Visit [facility] Gabrielle Wheat PA Primary osteoarthritis of both knees 10/03/2017 Orders Only [facility] Izzy Fang MD Torticollis, spasmodic (Primary Dx); Patient receives primary care from outside this practice 09/07/2017 Office Visit [facility] Jose Platt RN Shoulder Pain (ask my nurse request ) 09/07/2017 Telephone [facility] Grace David RN 09/06/2017 Nurse Triage Chris Talbot MD Rode, Rashmi, MD Acute neck pain (Primary Dx); S/P thyroidectomy; Patient receives primary care from outside this practice 09/05/2017 Office Visit Family Practice after 04/17/2017 Immunizations Name Dates Previously Given Next Due Influenza Vaccine 03/12/2013, 04/08/2012, 12/14/2010 [...] Counseling Given: No Comments: former smoker Alcohol Use Drinks/Week oz/Week Comments No Sex Assigned at Date Recorded Not on file Industry Job Start Date Occupation Not on file Not on file Not on file Travel End Travel History Travel Start No recent travel history available. Last Filed Vital Signs Time Taken Vital Sign Reading 01/08/2018 10:19 AM COACH CLEANER Blood Pressure 117/77 01/08/2018 10:19 AM COACH CLEANER Pulse 67 01/08/2018 10:19 AM COACH CLEANER Temperature 36.9 C (98.5 F) 01/08/2018 10:19 AM COACH CLEANER Respiratory Rate 18 - Oxygen Saturation - - Inhaled Oxygen - Concentration 01/08/2018 10:19 AM COACH CLEANER Weight 75.3 kg (166 lb) 01/08/2018 10:19 AM COACH CLEANER Height 172.7 cm (5' 8") 01/08/2018 10:19 AM COACH CLEANER Body Mass Index 25.24 Plan of Treatment Care Team Description Date Type Specialty Tito Blanco, TRISTA 04/25/2018 Therapy Physical Therapy Health Maintenance Due Date Last Done Comments Cervical Cancer Scrn (3 12/28/2013 12/28/2010 (Previously completed - Yrs) External) Breast Cancer Scrn 05/03/2018 05/03/2017, 05/28/2012, 04/08/2012, (Yearly) Additional history exists Colorectal Cancer Scrn 10/26/2018 10/26/2017, 04/08/2012 (Declined), Annual (FIT/FOBT) Age 50 11/03/2008, Additional history exists to 75 Goals Goal Patient Associated Recent Progress Patient-Stat Author Goal Type Problems ed? Exercise Regularly Self Susana Camarena management GEORGE Jackson Procedures Comments Procedure Name Priority Date/Time Associated Diagnosis EMG CONSULT Routine 12/13/2017 Right arm weakness 1:00 PM CDT NEEDLE EMG, 1 EXTREMITY Routine 12/13/2017 Right arm weakness 1:00 PM CDT OCCULT BLOOD ICT Routine 10/26/2017 Screen for colon cancer 2:26 [...] of 9:13 AM CDT right shoulder after 04/17/2017 Results * EMG CONSULT (12/13/2017 1:00 PM CDT) Narrative Performed At Janine David MD 12/14/2017 11:34 AM [facility], DEPT PMR [address] [place] [place] [address] ELECTROMYOGRAPHY REPORT NAME : GAIL HENDERSON GENDER: [...] to lifting heavy potato sacks while in [facility].+ tingling, numbness in Right finger tips.+ neck [...] Multilevel degenerative changes, severe at C6-7. This [facility] radiology report is a preliminary resident [...] UP WITH THE REFERRING PHYSICIAN. FACULTY: [facility] ELECTRODIAGNOSTIC LABORATORY NORMAL REFERENCE VALUES FOR COMMON NERVE CONDUCTION STUDIES References used for this table from: 1. Noe and Ck, Manual of Nerve Conduction Studies, 2nd edition, 2006, [employer], [place], [place] (for a complete listing please refer to this manual) and2. * Darrell Curry, and Rogerio, Electrodiagnostic Medicine, 2nd edition, 2001, [employer], [place], [place]. Skin temperature should be > 32 [...] At Janine David MD 12/14/2017 11:34 AM [facility], DEPT PMR [address] [place] [address] ELECTROMYOGRAPHY REPORT NAME : GAIL HENDERSON GENDER: [...] to lifting heavy potato sacks while in [facility].+ tingling, numbness in Right finger tips.+ neck [...] UP WITH THE REFERRING PHYSICIAN. FACULTY: [facility] ELECTRODIAGNOSTIC LABORATORY NORMAL REFERENCE VALUES FOR COMMON NERVE CONDUCTION STUDIES References used for this table from: 1. Noe and Ck, Manual of Nerve Conduction Studies, 2nd edition, 2006, [employer], [place], [place] (for a complete listing please refer to this manual) and2. * Darrell Curry, and Rogerio, Electrodiagnostic Medicine, 2nd edition, 2002, [employer], [place], [place]. Skin temperature should be > 32 [...] LAB ICT Specimen Stool Performing Organization Address City/[facility] Phone Number [facility] * ARTHROCENTESIS -ASPIRATION/INJECTION, MAJOR JOINT (10/26/2017 11:49 AM CDT) Only the most recent of 2 results within the time period is included. Narrative Performed At Carleen Mckay, [place] 10/26/20172:23 PM Arthrocentesis -Aspiration/Injection, Major Joint Date/Time: [...] 2 VIEWS MIN (10/03/2017 9:13 AM CDT) Impressions Performed At IMPRESSION: SMS No acute [...] AM Performing Organization Address City/State/Zipcode Phone Number SMS after 04/17/2017 Insurance Type Payer Benefit Subscriber ID Effective Phone Address Plan / Dates Group MEDICARE MEDICARE xxxxxxxxxxx 2012- [phone] Present [address] [place] [address] [place] MEDICA[place] [id number] xxxxxxxxx 2013-P [phone] QUALIFIED resent [id number] MEDICARE [place], [place] BENEFICIAR [id number] Y
--- OUTSIDE RECORDS SUMMARY | 2018-09-17 08:53 | XMS REPORT | Clinical Summary ---
Author Author [facility] Organization [facility] Address Unknown Phone Unavailable Care Team Providers Care Commercial Floor Covering Installer Name Role Phone Izzy Fang MD PCP [...] Synovitis of left knee 10/26/2017 Office Visit [facility] Patricia Bunch Screen for colon cancer 10/26/2017 Orders Only [facility] Izzy Fang MD Right arm weakness (Primary Dx); Right shoulder pain, unspecified chronicity; Screen for colon cancer 10/18/2017 Office Visit [facility] Gabrielle Wheat PA Pain and swelling of right shoulder 10/03/2017 Ancillary Radiology Procedure Gabrielle Wheat PA Primary osteoarthritis of both knees (Primary Dx); Patient receives primary care from outside this practice; Right shoulder pain, unspecified chronicity; Essential hypertension, benign; Dietary counseling for Above Normal BMI; Overweight; BMI 26.0-26.9,adult 10/03/2017 Office Visit [facility] Gabrielle Wheat PA Primary osteoarthritis of both knees 10/03/2017 Orders Only [facility] Izzy Fnag MD Torticollis, spasmodic (Primary Dx); Patient receives primary care from outside this practice 09/07/2017 Office Visit [facility] Jose Platt RN Shoulder Pain (ask my nurse request ) 09/07/2017 Telephone [facility] Grace David RN 09/06/2017 Nurse Triage Chris Talbot MD Rode, Rashmi, MD Acute neck pain (Primary Dx); S/P thyroidectomy; Patient receives primary care from outside this practice 09/05/2017 Office Visit Family Practice after 04/16/2017 Immunizations Name Dates Previously Given Next Due [...] Taken Vital Sign Reading 01/08/2018 10:19 AM SL[facility] CHOPPER Blood Pressure 117/77 01/08/2018 10:19 AM SL[facility] CHOPPER Pulse 67 01/08/2018 10:19 AM SLIVER CHOPPER Temperature 36.9 C (98.5 F) 01/08/2018 10:19 AM SLIVER CHOPPER Respiratory Rate 18 - Oxygen Saturation - - Inhaled Oxygen - Concentration 01/08/2018 10:19 AM SLIVER CHOPPER Weight 75.3 kg (166 lb) 01/08/2018 10:19 AM SLIVER CHOPPER Height 172.7 cm (5' 8") 01/08/2018 10:19 AM SLIVER CHOPPER Body Mass Index 25.24 Plan of Treatment [...] of 9:13 AM CDT right shoulder after 04/16/2017 Results * EMG CONSULT (12/13/2017 1:00 PM CDT) Narrative Performed At Janine David MD 12/14/2017 11:34 AM [facility], DEPT PMR [address] [place] [address] ELECTROMYOGRAPHY REPORT NAME : GAIL HENDERSON GENDER: [...] to lifting heavy potato 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 This [facility] radiology report is a preliminary resident [...] UP WITH THE REFERRING PHYSICIAN. FACULTY: [facility] ELECTRODIAGNOSTIC LABORATORY NORMAL REFERENCE VALUES FOR COMMON NERVE CONDUCTION STUDIES References used for this table from: 1. Noe and Ck, Manual of Nerve Conduction Studies, 2nd edition, 2006, [employer], [place], [place] (for a complete listing please refer to this manual) and2. * Darrell Curry, and Rogerio, Electrodiagnostic Medicine, 2nd edition, 2001, [place], [place], [place]. 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 FACULTY: [facility] ELECTRODIAGNOSTIC LABORATORY NORMAL REFERENCE VALUES FOR COMMON NERVE CONDUCTION STUDIES References used for this table from: 1. Noe and Ck, Manual of Nerve Conduction Studies, 2nd edition, 2006, [employer], [place], [place] (for a complete listing please refer to this manual) and2. * Darrell Curry, and Rogerio, Electrodiagnostic Medicine, 2nd edition, 2002, [place], [place], [place]. Skin temperature should be > 32 [...] LAB ICT Specimen Stool Performing Organization Address City/[facility] Phone Number [facility] * ARTHROCENTESIS -ASPIRATION/INJECTION, MAJOR JOINT (10/26/2017 11:49 AM CDT) Only the most recent of 2 results within the time period is included. Narrative Performed At Carleen Mckay, [place] 10/26/20172:23 PM Arthrocentesis -Aspiration/Injection, Major Joint Date/Time: [...] Organization Address City/State/Zipcode Phone Number SMS after 04/16/2017 Insurance Type Payer Benefit Subscriber ID Effective Phone Address Plan / Dates Group MEDICARE MEDICARE xxxxxxxxxxx 2012- [phone] [id number] [place] [address] [place] MEDICA[place] [id number] xxxxxxxxx 2013-P [phone] [address] QU[address] resent [id number] MEDICARE [place], [place] BENEFICIAR [id number] Y
--- OUTSIDE RECORDS SUMMARY | 2018-09-17 08:53 | XMS REPORT | Clinical Summary ---
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 Name Role Phone Izzy Fang Physician PCP Allergies Comments Active Allergy Reactions Severity [...] Encounters Care Team Description Date Type Specialty Izzy Fang Physician Cervical radiculopathy at C5 06/04/2018 [facility] Tito Blanco PT Decreased functional mobility and [...] of right shoulder 02/21/2018 Therapy Physical Therapy FrancisTito sunshine PT Decreased functional mobility and endurance (Primary Dx); Chronic neck pain; Decreased range of motion of right shoulder 02/14/2018 Therapy Physical Therapy Tito Blanco PT Decreased functional mobility and endurance (Primary Dx); Chronic neck pain; Decreased range of motion of right shoulder 02/04/2018 Therapy Physical Therapy 02/04/2018 Travel Izzy Fang, Cervical radiculopathy at C5 (Primary Dx); Need for influenza vaccination 01/08/2018 Office Visit [facility] Janine David MD Atrophy of muscle of right upper arm (Primary Dx); S/P thyroidectomy; Right shoulder pain, unspecified chronicity; Cervical radiculopathy; History of trauma 12/13/2017 Procedure Visit [facility] MD Pettis, Renee D, PA Synovitis of right knee (Primary Dx); Synovitis of left knee 10/26/2017 Office Visit [facility] Patricia Bunch Screen for colon cancer 10/26/2017 Orders Only [facility] Izzy Fang Physician Right arm weakness (Primary Dx); Right shoulder pain, unspecified chronicity; Screen for colon cancer 10/18/2017 Office Visit [facility] Gabrielle Wheat PA Pain and swelling of right shoulder 10/03/2017 Ancillary Radiology Procedure Gabrielle Wheat PA Primary osteoarthritis of both knees (Primary Dx); Patient receives primary care from outside this practice; Right shoulder pain, unspecified chronicity; Essential hypertension, benign; Dietary counseling for Above Normal BMI; Overweight; BMI 26.0-26.9,adult 10/03/2017 Office Visit [facility] Gabrielle Wheat PA Primary osteoarthritis of both knees 10/03/2017 Orders Only [facility] Izzy Fang, Physician Torticollis, spasmodic (Primary Dx); Patient receives primary care from outside this practice 09/07/2017 Office Visit [facility] Jose Platt RN Shoulder Pain (ask my nurse request ) 09/07/2017 Telephone [facility] Grace David RN 09/06/2017 Nurse Triage Chris Talbot MD Rode, Rashmi, MD Acute neck pain (Primary Dx); S/P thyroidectomy; Patient receives primary care from outside this practice 09/05/2017 Office Visit Family Practice after 06/07/2017 Immunizations Name Dates Previously Given Next Due [...] Taken Vital Sign Reading 01/08/2018 10:19 AM [facility] CE[facility] Blood Pressure 117/77 01/08/2018 10:19 AM [facility] Pulse 67 01/08/2018 10:19 AM [facility] Temperature 36.9 C (98.5 F) 01/08/2018 10:19 AM [facility] Respiratory Rate 18 - Oxygen Saturation - - Inhaled Oxygen - Concentration 01/08/2018 10:19 AM [facility] Weight 75.3 kg (166 lb) 01/08/2018 10:19 AM [facility] Height 172.7 cm (5' 8") 01/08/2018 10:19 AM [facility] Body Mass Index 25.24 Plan of Treatment Care Team Description Date Type Specialty Tito Blanco, PT 06/20/2018 Therapy Physical Therapy Health Maintenance Due Date [...] of 9:13 AM CDT right shoulder after 06/07/2017 Results * EMG CONSULT (12/13/2017 1:00 PM CDT) Narrative Performed At Janine David MD 12/14/2017 11:34 AM [facility], DEPT PMR [address] [place] [address] ELECTROMYOGRAPHY REPORT NAME : GAIL HENDERSON GENDER: [...] to lifting heavy potato sacks while in intermediate.+ tingling, numbness in Right finger tips.+ neck [...] Multilevel degenerative changes, severe at C6-7. This [facility] radiology report is a preliminary [...] UP WITH THE REFERRING PHYSICIAN. FACULTY: [facility] ELECTRODIAGNOSTIC LABORATORY NORMAL REFERENCE VALUES FOR COMMON NERVE CONDUCTION STUDIES References used for this table from: 1. Gabrieler and Ck, Manual of Nerve Conduction Studies, 2nd edition, 2006, [employer], [place], [place] (for a complete listing please refer to this manual) and2. * Darrell Curry and Rogerio, Electrodiagnostic Medicine, 2nd edition, 2002, [employer], [place], [place]. Skin temperature should be > 32 [...] At Janine David MD 12/14/2017 11:34 AM [facility], DEPT PMR [address] [place] [address] ELECTROMYOGRAPHY REPORT NAME : GAIL HENDERSON GENDER: [...] to lifting heavy potato sacks while in intermediate.+ tingling, numbness in Right finger tips.+ neck [...] Multilevel degenerative changes, severe at C6-7. This [facility] radiology report is a preliminary [...] FOLLOW UP WITH THE REFERRING PHYSICIAN. FACULTY: [facility] ELECTRODIAGNOSTIC LABORATORY NORMAL REFERENCE VALUES FOR COMMON NERVE CONDUCTION STUDIES References used for this table from: 1. Noe and Ck, Manual of Nerve Conduction Studies, 2nd edition, 2006, [employer], [place], [place] (for a complete listing please refer to this manual) and2. * Darrell Curry, and Rogerio, Electrodiagnostic Medicine, 2nd edition, 2002, [employer], [place], [place]. Skin temperature should be > 32 [...] 2:26 PM CDT) Occult Blood Negative [facility] ICT Specimen Stool Performing Organization Address City/State/Zipcode Phone Number [facility] * ARTHROCENTESIS -ASPIRATION/INJECTION, MAJOR JOINT (10/26/2017 11:49 AM CDT) Only the most recent of 2 results within the time period is included. Narrative Performed At Carleen Mckay, [place] 10/26/20172:23 PM Arthrocentesis -Aspiration/Injection, Major Joint Date/Time: [...] 9:13 AM CDT) Impressions Performed At IMPRESSION: [facility] No acute osseous lesion. Hypertrophic acromioclavicular arthrosis. [...] MD, 10/03/2017 9:34 AM Performing Organization Address City/State[facility] Phone Number SMS after 06/07/2017 Insurance Type Payer Benefit Subscriber ID Effective Phone Address Plan / Dates Group MEDICARE MEDICARE xxxxxxxxxxx 2012- [phone] [address] Present [id number] [place] [address] [place] MEDICA[place] [id number] xxxxxxxxx 2013-P [phone] [address] QUALIFIED resent [id number] MEDICARE [place], [place] BENEFICIAR [phone] Y
--- OUTSIDE RECORDS SUMMARY | 2018-09-17 08:54 | XMS REPORT | Summary of Care ---
Author Author [facility] Organization [facility] Address Unknown Phone Unavailable Encounter [facility] [place](FIN) [id number] Date(s): 09/05/17 - 09/05/17 [facility] [address] [employer] provided by [facility] [place] [address]- Encounter Diagnosis Muscle spasms of neck (Discharge Diagnosis) - 09/05/17 Discharge Disposition: Home or Self Care Attending Physician: Memo Stapleton MD Vital Signs Most recent to 1 2 oldest [Reference Range]: Temperature Oral 98.3 DegF 98.2 DegF [96.4-99.1 DegF] (09/05/17 8:41 PM) (09/05/17 6:36 PM) Blood Pressure 168/89 mmHg 147/74 mmHg [90-140/60-90 mmHg] *HI* *HI* (09/05/17 8:41 PM) (09/05/17 6:36 PM) Respiratory Rate 20 BRMIN 22 BRMIN [14-20 BRMIN] (09/05/17 8:41 PM) *HI* (09/05/17 6:36 PM) Peripheral Pulse 75 bpm Rate [60-100 bpm] (09/05/17 6:36 PM) Problem List Condition Effective Dates Status Health Status Informant Anemia(Confirmed) Resolved Back pain(Confirmed) Resolved Depression(Confirmed Resolved ) HTN Resolved (hypertension)(Confi rmed) Allergies, Adverse Reactions, Alerts Substance Reaction Severity Status Elavil Hives Active Medications morphine Sulfate 4 mg, Route: IM, ONCE, Dosing Weight 82.727, kg, Priority: STAT, Start date: 01/13 19:08:00 CDT, Stop date: 09/05/17 19:08:00 CDT Start Date: 09/05/17 Stop Date: 09/05/17 Status: Completed Valium 5 mg, Route: PO, ONCE, Dosing Weight 82.727, kg, Start date: 09/05/17 19:16:00 C DT, Stop date: 09/05/17 19:16:00 CDT Start Date: 09/05/17 Stop Date: 09/05/17 Status: Completed Valium 5 mg oral tablet 5 mg=1 tab, PO, QPM, take one tablet each day at night, # 12 tab, 0 Refill(s) Start Date: 09/05/17 Stop Date: 09/17/17 Status: Ordered Results No data available for this section Immunizations Given and Recorded Vaccine Date Status Refusal Reason pneumococcal 23-valent vaccine 05/29/17 Given Procedures Procedure Date Related Diagnosis Body Site Status Open reduction of fracture of ankle with Completed internal fixation Open reduction of fracture of mandible with Completed internal fixation Social History Social History Type Response Substance Abuse Use: Current. Type: Marijuana. Recreational Drug Route: Inhaled. Frequency: 3-5 times per week.1 Alcohol Never Smoking Status Never smoker; Exposure to Tobacco Smoke None; Cigarette Smoking Last 365 Days No; Reg Smoking Cessation Counseling No entered on: 09/05/17 1last use 2 days ago Assessment and Plan No data available for this section
--- OUTSIDE RECORDS SUMMARY | 2018-09-17 08:54 | XMS REPORT | Summary of Care ---
Author Author [facility] Organization [facility] Address Unknown Phone Unavailable Encounter HQ [place](FIN) [id number] Date(s): 12/22/17 - 12/22/17 [facility] [address] [place] [phone] Encounter Diagnosis Other specified diseases of pancreas (Final) - 12/28/17 Discharge Disposition: Home or Self Care Attending Physician: Coby Aguirre MD Referring Physician: Coby Aguirre MD Vital Signs No data available for this section Problem List Condition Effective Dates Status Health Status Informant Anemia(Confirmed) Resolved Back pain(Confirmed) Resolved Dilated bile Resolved duct(Confirmed) Depression(Confirmed Resolved ) HTN Resolved (hypertension)(Confi rmed) Allergies, Adverse Reactions, Alerts Substance Reaction Severity Status Elavil Hives Active Medications No data available for this section Results No data available for this section Immunizations Given and Recorded Vaccine Date Status Refusal Reason pneumococcal 23-valent vaccine 05/29/17 Given Procedures Procedure Date Related Diagnosis Body Site Status Open reduction of fracture of ankle with Completed internal fixation Open reduction of fracture of mandible with Completed internal fixation Upper GI endoscopy Completed Social History Social History Type Response Substance Abuse Use: Current. Type: Marijuana. Recreational Drug Route: Inhaled. Frequency: 3-5 times per week.1 Alcohol Never Smoking Status Never smoker; Exposure to Tobacco Smoke None; Cigarette Smoking Last 365 Days No; Reg Smoking Cessation Counseling No entered on: 04/18/18 1last use 2 days ago Assessment and Plan No data available for this section
--- OUTSIDE RECORDS SUMMARY | 2018-09-17 08:54 | XMS REPORT | Summary of Care ---
Author Author [facility] Organization [facility] Address Unknown Phone Unavailable Encounter MELCHOR Tyson(CIARA) [id number] Date(s): 05/28/17 - 05/29/17 [facility] [address] [facility] provided by [facility] [place] [address]- Encounter Diagnosis Other chest pain (Final) - 06/06/17 Essential (primary) hypertension (Final) - Major depressive disorder, single episode, unspecified (Final) - Hypothyroidism, unspecified (Final) - Encounter for immunization (Final) - Discharge Disposition: Home or Self Care Attending Physician: Mando Ballard MD Admitting Physician: Mando Ballard MD Vital Signs 1 2 3 Most recent to oldest [Reference Range]: 172.72 cm (05/28/17 3:09 PM) 172.72 cm (05/28/17 10:38 AM) Height 97.9 DegF (05/29/17 7:00 PM) 99.4 DegF *HI* (05/29/17 11:40 AM) 97.8 DegF (05/29/17 8:20 AM) Temperature Oral [96.4-99.1 DegF] 141/78 mmHg *HI* (05/29/17 7:00 PM) 136/91 mmHg (05/29/17 11:40 AM) 133/78 mmHg (05/29/17 8:20 AM) Blood Pressure [90-140/60-90 mmHg] 18 BRMIN (05/29/17 7:00 PM) 18 BRMIN (05/29/17 11:40 AM) 18 BRMIN (05/29/17 8:20 AM) Respiratory Rate [14-20 BRMIN] 51 bpm *LOW* (05/28/17 2:39 PM) 57 bpm *LOW* (05/28/17 12:17 PM) 55 bpm *LOW* (05/28/17 10:38 AM) Peripheral Pulse Rate [60-100 bpm] 83.636 kg (05/28/17 3:09 PM) 86.364 kg (05/28/17 10:38 AM) Weight 28.04 m2 (05/28/17 3:09 PM) 28.95 m2 (05/28/17 10:38 AM) Body Mass Index Problem List Condition Effective Dates Status Health Status Informant Anemia(Confirmed) Resolved Back pain(Confirmed) Resolved Depression(Confirmed Resolved ) HTN Resolved (hypertension)(Confi rmed) Allergies, Adverse Reactions, Alerts Substance Reaction Severity Status Elavil Hives Active Medications albuterol 0.083% inhalation solution 2.5 mg=3 mL, NEB, Q6H, 0 Refill(s) Start Date: 05/28/17 Status: Ordered amLODIPine PO, Daily, 0 Refill(s) Start Date: 05/28/17 Stop Date: 05/29/17 Status: Discontinued aspirin 81 mg tablet, chewable 243 mg, 3 tab, Route: PO, Drug form: CHEWTAB, ONCE, Dosing Weight 86.364, kg, St art date: 05/28/17 12:56:00 CDT, Stop date: 05/28/17 12:56:00 CDT Notes: Take with food. Start Date: 05/28/17 Stop Date: 05/28/17 Status: Completed aspirin 81 mg tablet, chewable 324 mg, 4 tab, Route: PO, Drug form: CHEWTAB, ONCE, Dosing Weight 86.364, kg, Pr iority: STAT, Start date: 05/28/17 12:42:00 CDT, Stop date: 05/28/17 12:42:00 CD T Notes: Take with food. Start Date: 05/28/17 Stop Date: 05/28/17 Status: Discontinued aspirin 81 mg tablet, enteric coated 81 mg=1 tab, PO, Daily, # 90 tab, 3 Refill(s), Pharmacy: [facility] Start Date: 05/29/17 Status: Ordered citalopram 20 mg, PO, Daily, 0 Refill(s) Start Date: 05/28/17 Stop Date: 05/29/17 Status: Discontinued levocetirizine 5 mg oral tablet 5 mg=1 tab, PO, QPM, 0 Refill(s) Start Date: 05/28/17 Status: Ordered levothyroxine 150 microgram, 1 tab, Route: PO, Drug form: TAB, Daily, Dosing Weight 83.636, kg , Start date: 05/29/17 9:00:00 CDT, Duration: 30 day, Stop date: 06/27/17 9:00:0 0 CDT Notes: Take 1 hour before or 2 hours after meal; Enteral feeds may interefere wi th the absorption of this medication. (Same as: Levothroid) Start Date: 05/29/17 Stop Date: 05/29/17 Status: Discontinued levothyroxine 150 mcg (0.15 mg) oral tablet 150 microgram=1 tab, PO, Daily, 0 Refill(s) Start Date: 05/28/17 Status: Ordered Lipitor 40 mg oral tablet 40 mg=1 tab, PO, Bedtime, # 30 tab, 0 Refill(s), Pharmacy: [facility] Start Date: 05/29/17 Status: Ordered methocarbamol PO, PRN Pain Score 1-3, 0 Refill(s) Start Date: 05/29/17 Status: Ordered pantoprazole 40 mg, 1 tab, Route: PO, Drug form: ECTAB, Daily, Dosing Weight 83.636, kg, Star t date: 05/29/17 9:00:00 CDT, Duration: 30 day, Stop date: 06/27/17 9:00:00 CDT Notes: Tablet should not be chewed or crushed.(Same as: Protonix) Start Date: 05/29/17 Stop Date: 05/29/17 Status: Discontinued pantoprazole 40 mg oral enteric coated tablet 40 mg=1 tab, PO, Daily, 0 Refill(s) Start Date: 05/28/17 Status: Ordered pneumococcal 23-valent vaccine 0.5 mL, Route: IM, Drug Form: INJ, Daily, Start date: 05/29/17 9:00:00 CDT, Dura tion: 1 doses or times, Stop date: 05/29/17 9:00:00 CDT Notes: (Same as: Pneumovax 23) Refrigerate Start Date: 05/29/17 Stop Date: 05/29/17 Status: Completed Robaxin 500 mg, 1 tab, Route: PO, Drug form: TAB, TID, Dosing Weight 83.636, kg, PRN Spa sm, Start date: 05/29/17 9:50:00 CDT, Duration: 30 day, Stop date: 06/28/17 9:49 :00 CDT Notes: (Same as:Robaxin) Start Date: 05/29/17 Stop Date: 05/29/17 Status: Discontinued Vitamin D3 50,000 intl units oral capsule 50,000 IntlUnit=1 cap, PO, qMonth, 0 Refill(s) Start Date: 05/28/17 Stop Date: 05/29/17 Status: Discontinued Results ELECTROLYTES 1 2 3 Most recent to oldest [Reference Range]: 139 mEq/L (05/29/17 4:07 AM) 137 mEq/L (05/28/17 11:42 AM) Sodium Lvl [135-145 mEq/L] 3.8 mEq/L (05/29/17 4:07 AM) 4.3 mEq/L (05/28/17 11:42 AM) Potassium Lvl [3.5-5.1 mEq/L] 106 mEq/L (05/29/17 4:07 AM) 101 mEq/L (05/28/17 11:42 AM) Chloride Lvl [95-109 mEq/L] 25 mEq/L (05/29/17 4:07 AM) 29 mEq/L (05/28/17 11:42 AM) CO2 [24-32 mEq/L] 11.8 mEq/L (05/29/17 4:07 AM) 11.3 mEq/L (05/28/17 11:42 AM) AGAP [10.0-20.0 mEq/L] CHEM PANEL 1 2 3 Most recent to oldest [Reference Range]: 0.76 mg/dL (05/29/17 4:07 AM) 0.87 mg/dL (05/28/17 11:42 AM) Creatinine Lvl [0.50-1.40 mg/dL] 101 mL/min/1.73m2 1 *NA* (05/29/17 4:07 AM) 86 mL/min/1.73m2 2 *NA* (05/28/17 11:42 AM) eGFR 8 mg/dL (05/29/17 4:07 AM) 10 mg/dL (05/28/17 11:42 AM) BUN [7-22 mg/dL] 87 mg/dL (05/29/17 4:07 AM) 92 mg/dL (05/28/17 11:42 AM) Glucose Lvl [70-99 mg/dL] 8.8 mg/dL (05/29/17 4:07 AM) 9.6 mg/dL (05/28/17 11:42 AM) Calcium Lvl [8.5-10.5 mg/dL] 1Result Comment: The eGFR is calculated using the [...] from the National Kidney Disease Education Program ( NKDEP) which additionally recommends that when the eGFR is used in patients with extremes of body mass index for purposes of drug dosing, the eGFR should be mul tiplied by the estimated BMI. 2Result Comment: The eGFR is calculated using the [...] from the National Kidney Disease Education Program ( NKDEP) which additionally recommends that when the eGFR is used in patients with extremes of body mass index for purposes of drug dosing, the eGFR should be mul tiplied by the estimated BMI. CARDIAC ENZYMES 1 2 3 Most recent to oldest [Reference Range]: <0.02 ng/mL (05/29/17 4:07 AM) <0.02 ng/mL (4/2/18 8:14 PM) <0.02 ng/mL (05/28/17 11:42 AM) Troponin-I [0.00-0.40 ng/mL] HEMATOLOGY 1 2 3 Most recent to oldest [Reference Range]: 4.1 K/CMM (05/28/17 11:42 AM) WBC [3.7-10.4 K/CMM] 4.35 M/CMM (05/28/17 11:42 AM) RBC [4.20-5.40 M/CMM] 14.6 g/dL (05/28/17 11:42 AM) Hgb [12.0-16.0 g/dL] 43.2 % (05/28/17 11:42 AM) Hct [36.0-48.0 %] 99.3 fL *HI* (05/28/17 11:42 AM) MCV [80.0-98.0 fL] 33.6 pg *HI* (05/28/17 11:42 AM) MCH [27.0-31.0 pg] 33.8 g/dL (05/28/17 11:42 AM) MCHC [32.0-36.0 g/dL] 13.0 % (05/28/17 11:42 AM) RDW [11.5-14.5 %] 7.2 fL *LOW* (05/28/17 11:42 AM) MPV [7.4-10.4 fL] 222 K/CMM (05/28/17 11:42 AM) Platelet [133-450 K/CMM] 39.4 % *LOW* (05/28/17 11:42 AM) Segs [45.0-75.0 %] 50.6 % *HI* (05/28/17 11:42 AM) Lymphocytes [20.0-40.0 %] 8.6 % (05/28/17 11:42 AM) Monocytes [2.0-12.0 %] 0.5 % (05/28/17 11:42 AM) Eosinophils [0.0-4.0 %] 0.9 % (05/28/17 11:42 AM) Basophils [0.0-1.0 %] 1.6 K/CMM (05/28/17 11:42 AM) Segs-Bands # [1.5-8.1 K/CMM] 2.1 K/CMM (05/28/17 11:42 AM) Lymphocytes # [1.0-5.5 K/CMM] 0.3 K/CMM (05/28/17 11:42 AM) Monocytes # [0.0-0.8 K/CMM] Immunizations Given and Recorded Vaccine Date Status [...] Reg Smoking Cessation Counseling No entered on: 05/28/17 1last use 2 days ago Assessment and Plan Extracted from: Title: History and Physical Author: Mando Ballard MD Date: 05/28/17 Atypical chest pain This is a 57-year-old female with history of hypertension, questionable positive family history of cardiac diseasewho presents with left-sidedatypical chest pain. Will trend troponin 3. Initial EKG shows sinus bradycardia without ischemic changes. Plan to obtainstress echocardiogram. Depression Patient will follow with PCP regardingoutpatient management Hypothyroidism We will resumelevothyroxine Ambulate Anticipate discharge home in 1-2 days
--- OUTSIDE RECORDS SUMMARY | 2018-09-17 08:54 | XMS REPORT | Summary of Care ---
Author Organization Unknown Address Unknown Phone Unavailable Encounter HQ Wei_michael(CIARA) [id number] Date(s): 09/26/13 - 09/26/13 [facility] Outpatient Imaging [address] Discharge Disposition: Home Physician Attending: Coby Aguirre MD Reason for Visit 530.81 - ESOPHAGEAL REFL Problem List No data available for this section Allergies, Adverse Reactions, Alerts No data available for this section Medications No data available for this section Medications Administered During Your Visit No data available for this section Immunizations No data available for this section
--- OUTSIDE RECORDS SUMMARY | 2018-09-17 08:54 | XMS REPORT | Summary of Care ---
Author Author [facility] Organization [facility] Address Unknown Phone Unavailable Encounter HQ Wei_michael(FIN) [id number] Date(s): 04/09/18 - 04/09/18 [facility] [address], [place] [address] Discharge Disposition: Home or Self Care Attending Physician: Boni Mcdermott MD Referring Physician: Boni Mcdermott MD Vital Signs No data available for [...]
--- OUTSIDE RECORDS SUMMARY | 2018-09-17 08:54 | XMS REPORT | Summary of Care ---
Author Author [facility] Organization [facility] Address Unknown Phone Unavailable Encounter MELCHOR Tyson(CIARA) [id number] Date(s): 04/18/18 - 04/18/18 [facility] [address] [facility] [address] [place], [place] [address] [phone] Discharge Disposition: Home or Self Care Attending Physician: Crystal Potts Referring Physician: Crystal Potts Vital Signs Most recent to 1 oldest [Reference Range]: Height 172.72 cm (04/18/18 9:40 AM) Blood Pressure 133/87 mmHg [90-140/60-90 mmHg] (04/18/18 9:40 AM) Peripheral Pulse 69 bpm Rate [60-100 bpm] (04/18/18 9:40 AM) Weight 76.364 kg (04/18/18 9:40 AM) Body Mass Index 25.6 m2 (04/18/18 9:40 AM) Problem List Condition Effective Dates Status Health Status Informant Anemia(Confirmed) Resolved Back pain(Confirmed) Resolved Dilated bile Resolved duct(Confirmed) Depression(Confirmed Resolved ) HTN Resolved (hypertension)(Confi rmed) Allergies, Adverse Reactions, Alerts Substance Reaction Severity [facility] Active Medications Creon 36,000 units oral delayed release capsule See Instructions, 2 caps by mouth with each meal; 1 cap by mouth with each snack , # 250 cap, 0 Refill(s), Pharmacy: [facility] Start Date: 04/18/18 Status: Ordered omeprazole 40 mg oral delayed release capsule 40 mg=1 cap, PO, BID, # 60 cap, 1 Refill(s), Pharmacy: [facility] Start Date: 04/18/18 Stop Date: 06/17/18 Status: Ordered Results ELECTROLYTES Most recent to 1 oldest [Reference Range]: Sodium Lvl [135-145 138 mEq/L mEq/L] (04/18/18 1145 AM) Potassium Lvl 4.4 mEq/L [3.5-5.1 mEq/L] (04/18/1845 AM) Chloride Lvl [95-109 102 mEq/L mEq/L] (04/18/1845 AM) CO2 [24-32 mEq/L] 29 mEq/L (04/18/1845 AM) AGAP [10.0-20.0 11.4 mEq/L mEq/L] (04/18/18 1145 AM) CHEM PANEL Most recent to 1 oldest [Reference Range]: Creatinine Lvl 0.85 mg/dL [0.50-1.40 mg/dL] (04/18/1845 AM) eGFR 88 mL/min/1.73m2 1 *NA* (04/18/1845 AM) BUN [7-22 mg/dL] 6 mg/dL *LOW* (04/18/1845 AM) B/C Ratio [6-25] 7 (04/18/1845 AM) Glucose Lvl [70-99 84 mg/dL mg/dL] (04/18/1845 AM) Total Protein 7.6 g/dL [6.4-8.4 g/dL] (04/18/1845 AM) Albumin Lvl [3.5-5.0 3.8 g/dL g/dL] (04/18/1845 AM) Globulin [2.7-4.2 3.8 g/dL g/dL] (04/18/1845 AM) A/G Ratio [0.7-1.6] 1.0 (04/18/1845 AM) Calcium Lvl 9.1 mg/dL [8.5-10.5 mg/dL] (04/18/1845 AM) ALT [0-65 unit/L] 18 unit/L (04/18/18 1145 AM) AST [0-37 unit/L] 18 unit/L (04/18/18 11:45 AM) Alk Phos [39-136 85 unit/L unit/L] (04/18/1845 AM) Bili Total [0.2-1.3 0.4 mg/dL mg/dL] (04/18/18 11:45 AM) 1Result Comment: The eGFR is calculated using [...] be mul tiplied by the estimated BMI. HEMATOLOGY Most recent to 1 oldest [Reference Range]: WBC [3.7-10.4 K/CMM] 5.0 K/CMM (04/18/18 11:45 AM) RBC [4.20-5.40 4.22 M/CMM M/CMM] (04/18/18 11:45 AM) Hgb [12.0-16.0 g/dL] 14.4 g/dL (04/18/18 11:45 AM) Hct [36.0-48.0 %] 42.3 % (04/18/18 11:45 AM) MCV [80.0-98.0 fL] 100.3 fL *HI* (04/18/18:45 AM) MCH [27.0-31.0 pg] 34.2 pg *HI* (04/18/18 11:45 AM) MCHC [32.0-36.0 34.1 g/dL g/dL] (04/18/18 11:45 AM) RDW [11.5-14.5 %] 12.6 % (04/18/18 11:45 AM) MPV [7.4-10.4 fL] 7.8 fL (04/18/18 11:45 AM) Platelet [133-450 265 K/CMM K/CMM] (04/18/18 11:45 AM) Segs [45.0-75.0 %] 41.0 % *LOW* (04/18/18 11:45 AM) Lymphocytes 48.4 % [20.0-40.0 %] *HI* (04/18/18 11:45 AM) Monocytes [2.0-12.0 8.2 % %] (04/18/18 11:45 AM) Eosinophils [0.0-4.0 1.8 % %] (04/18/18 11:45 AM) Basophils [0.0-1.0 0.6 % %] (04/18/18 11:45 AM) Neutrophils # 2.1 K/CMM [1.5-8.1 K/CMM] (04/18/18 11:45 AM) Lymphocytes # 2.4 K/CMM [1.0-5.5 K/CMM] (04/18/18 11:45 AM) Monocytes # [0.0-0.8 0.4 K/CMM K/CMM] (04/18/18 11:45 AM) Eosinophils # 0.1 K/CMM [0.0-0.5 K/CMM] (04/18/18 11:45 AM) Macrocyte [None 1+ Seen] *ABN* (04/18/18 11:45 AM) Immunizations Given and Recorded Vaccine Date Status [...]
--- OUTSIDE RECORDS SUMMARY | 2018-09-17 08:54 | XMS REPORT | Summary of Care ---
Author Author [facility] Organization [facility] Address Unknown Phone Unavailable Encounter MELCHOR Tyson(CIARA) [id number] Date(s): 09/03/17 - 09/03/17 [facility] [address] [facility] provided by [facility] [place] [address]- Discharge Disposition: Home or Self Care Attending Physician: Roxy Ring MD Vital Signs Most recent to 1 2 oldest [Reference Range]: Height 172.72 cm (09/03/17 11:31 AM) Temperature Oral 99.4 DegF 99.4 DegF [96.4-99.1 DegF] *HI* *HI* (09/03/17 12:55 PM) (09/03/17 11:31 AM) Blood Pressure 158/74 mmHg 165/83 mmHg [90-140/60-90 mmHg] *HI* *HI* (09/03/17 12:55 PM) (09/03/17 11:31 AM) Respiratory Rate 20 BRMIN 20 BRMIN [14-20 BRMIN] (09/03/17 12:55 PM) (09/03/17 11:31 AM) Peripheral Pulse 65 bpm 68 bpm Rate [60-100 bpm] (09/03/17 12:55 PM) (09/03/17 11:31 AM) Weight 82.727 kg (09/03/17 11:31 AM) Body Mass Index 27.73 m2 (09/03/17 11:31 AM) Problem List Condition Effective Dates Status Health Status Informant Anemia(Confirmed) Resolved Back pain(Confirmed) Resolved Depression(Confirmed Resolved ) HTN Resolved (hypertension)(Confi rmed) Allergies, Adverse Reactions, Alerts Substance Reaction Severity Status Elavil Hives Active Medications Mobic 7.5 mg oral tablet 7.5 mg=1 tab, PO, Daily, # 30 tab, 0 Refill(s), Pharmacy: [facility] Start Date: 09/03/17 Status: Ordered Results No data available for [...]
--- OUTSIDE RECORDS SUMMARY | 2018-09-17 08:54 | XMS REPORT | Clinical Summary ---
Author Author [facility] Organization [facility] Address Unknown Phone Unavailable Care Team Providers Care House Mover Supervisor Name Role Phone Izzy Fang MD PCP [...] Synovitis of left knee 10/26/2017 Office Visit [facility] Patricia Bunch Screen for colon cancer 10/26/2017 Orders Only [facility] Izzy Fang MD Right arm weakness (Primary Dx); Right shoulder pain, unspecified chronicity; Screen for colon cancer 10/18/2017 Office Visit [facility] Gabrielle Wheat PA Pain and swelling of right shoulder 10/03/2017 Ancillary Radiology Procedure Gabrielle Wheat PA Primary osteoarthritis of both knees (Primary Dx); Patient receives primary care from outside this practice; Right shoulder pain, unspecified chronicity; Essential hypertension, benign; Dietary counseling for Above Normal BMI; Overweight; BMI 26.0-26.9,adult 10/03/2017 Office Visit [facility] Gabrielle Wheat PA Primary osteoarthritis of both knees 10/03/2017 Orders Only [facility] Izzy Fang MD Torticollis, spasmodic (Primary Dx); Patient receives primary care from outside this practice 09/07/2017 Office Visit [facility] Jose Platt RN Shoulder Pain (ask my nurse request ) 09/07/2017 Telephone [facility] Grace David RN 09/06/2017 Nurse Triage hCris Talbot MD Rode, Rashmi, MD Acute neck pain (Primary Dx); S/P thyroidectomy; Patient receives primary care from outside this practice 09/05/2017 Office Visit Family Practice after 04/04/2017 Immunizations Name Dates Previously Given Next Due [...] Taken Vital Sign Reading 01/08/2018 10:19 AM [facility] Blood Pressure 117/77 01/08/2018 10:19 AM [facility] Pulse 67 01/08/2018 10:19 AM [facility] C[facility]TER Temperature 36.9 C (98.5 F) 01/08/2018 10:19 AM [facility] CUTTER Respiratory Rate 18 - Oxygen Saturation - - Inhaled Oxygen - Concentration 01/08/2018 10:19 AM WAF[facility] CUTTER Weight 75.3 kg (166 lb) 01/08/2018 10:19 AM WAFER CUTTER Height 172.7 cm (5' 8") 01/08/2018 10:19 AM WAFER CUTTER Body Mass Index 25.24 Plan of Treatment [...] of 9:13 AM CDT right shoulder after 04/04/2017 Results * [facility]G CONSULT (12/13/2017 1:00 PM CDT) Narrative Performed At Janine David MD 12/14/2017 11:34 AM [facility], DEPT PMR [address] [place] [address] ELECTROMYOGRAPHY REPORT NAME : GAIL HENDERSON GENDER: [...] 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 This [facility] radiology report is a preliminary resident [...] UP WITH THE REFERRING PHYSICIAN. FACULTY: [facility] ELECTRODIAGNOSTIC LABORATORY NORMAL REFERENCE VALUES FOR COMMON NERVE CONDUCTION STUDIES References used for this table from: 1. Noe and Ck, Manual of Nerve Conduction Studies, 2nd edition, 2006, [employer], [place], [place] (for a complete listing please refer to this manual) and2. * Darrell Curry, and Rogerio, Electrodiagnostic Medicine, 2nd edition, 2001, Tho, [place], [place]. 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 FACULTY: [facility] ELECTRODIAGNOSTIC LABORATORY NORMAL REFERENCE VALUES FOR COMMON NERVE CONDUCTION STUDIES References used for this table from: 1. Noe and Ck, Manual of Nerve Conduction Studies, 2nd edition, 2006, [employer], [place], [place] (for a complete listing please refer to this manual) and2. * Darrell Curry, and Rogerio, Electrodiagnostic Medicine, 2nd edition, 2002, Tho, [place], [place]. Skin temperature should be > 32 [...] LAB ICT Specimen Stool Performing Organization Address City[facility] Phone Number [facility] * ARTHROCENTESIS -ASPIRATION/INJECTION, MAJOR JOINT (10/26/2017 11:49 AM CDT) Only the most recent of 2 results within the time period is included. Narrative Performed At [facility] [place], [place] 10/26/20172:23 PM Arthrocentesis -Aspiration/Injection, Major Joint Date/Time: [...] Organization Address City/State/Zipcode Phone Number SMS after 04/04/2017 Insurance Type Payer Benefit Subscriber ID Effective Phone Address Plan / Dates Group MEDICARE MEDICARE xxxxxxxxxxx 2012- [phone] [address] Present [address] [place] [address] [place] MEDICAID [id number] xxxxxxxxx 2013-P [phone] [address] resent [id number] MEDICARE [place], [place] BENEFICIAR [id number] Y
--- OUTSIDE RECORDS SUMMARY | 2018-09-17 08:54 | XMS REPORT | Summary of Care ---
Author Author [facility] Organization [facility] Address Unknown Phone Unavailable Encounter HQ Marbella(FIN) [id number] Date(s): 11/08/17 - 11/08/17 [facility] [address] [place] [phone] Encounter Diagnosis Other specified diseases of pancreas (Final) - 11/13/17 Discharge Disposition: Home or Self Care Attending Physician: Maddison Melgar Referring Physician: Coby Aguirre MD Vital Signs [...]
--- OUTSIDE RECORDS SUMMARY | 2018-09-17 08:54 | XMS REPORT | Summary of Care ---
Author Author [facility] Organization [facility] Address Unknown Phone Unavailable Encounter MELCHOR Tyson(FIN) [id number] Date(s): 01/14/18 - 01/15/18 [facility] [address] [facility] [address] [place] [phone] Vital Signs No data available for this section Problem List Condition Effective Dates Status Health Status Informant Anemia(Confirmed) Resolved Back pain(Confirmed) Resolved Dilated bile Resolved duct(Confirmed) Depression(Confirmed Resolved ) HTN Resolved (hypertension)(Confi rmed) Allergies, Adverse Reactions, Alerts Substance Reaction Severity Status Elavil Hives Active Medications pantoprazole 40 mg oral enteric coated tablet 40 mg=1 tab, PO, BID, # 60 tab, 0 Refill(s), Pharmacy: [facility] Start Date: 04/10/18 Stop Date: 05/10/18 Status: Ordered Zenpep 40,000 units-126,000 units-168,000 units oral delayed release capsule 2 cap, PO, TID, with each meal, # 60 cap, 0 Refill(s), given to patient Start Date: 04/09/18 Status: Ordered Results No data available for [...]
--- OUTSIDE RECORDS SUMMARY | 2018-09-17 08:54 | XMS REPORT | Clinical Summary ---
Author Author [facility] Organization [facility] Address Unknown Phone Unavailable Care Team Providers Care Audit Reviewer Name Role Phone Izzy Fang MD PCP [...] by mouth 3 Essential hypertension, daily. benign 09/15/2017 tiZANidine (ZANAFLEX) 4 Take 1 tablet [...] Encounters Care Team Description Date Type Specialty Roland Martinez MD Osteoarthritis of both knees, unspecified osteoarthritis type (Primary Dx) 08/30/[address] [facility] Tito Blanco PT Chronic neck pain (Primary Dx); Decreased functional mobility and endurance; Decreased range of motion of right shoulder 08/26/2018 Therapy Physical Therapy 08/26/2018 Travel Kai Silver MD Primary osteoarthritis involving multiple joints (Primary Dx); Encounter for special screening examination for neoplasm of breast 08/19/2018 Office Visit [facility] 08/19/2018 Travel Tito Blanco PT Decreased [...] MD Cervical radiculopathy at C5 06/04/[address] [facility] Tito Blanco PT Decreased functional mobility and [...] right shoulder 03/28/2018 Therapy Physical Therapy Tito Blanco, PT Decreased [...] vaccination 01/08/2018 Office Visit Family Practice Janine Ward MD Atrophy of muscle of right upper [...] knees 10/03/2017 Orders Only Family Practice after 09/15/2017 Immunizations Name Administration Dates Next Due Influenza [...] of 9:13 AM CDT right shoulder after 09/15/2017 Results * Arthrocentesis -Aspiration/Injection, Major Joint (08/30/2018 [...] 1:00 PM CDT) Narrative Performed At Janine Ward MD 12/14/2017 11:34 AM [facility], DEPT PMR [address] [place] [address] ELECTROMYOGRAPHY REPORT NAME : GAIL HENDERSON GENDER: [...] 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 FACULTY: [facility] NORMAL REFERENCE VALUES FOR COMMON NERVE CONDUCTION STUDIES References used for this table from: 1. Noe and Ck, Manual of Nerve Conduction Studies, 2nd edition, 2006, [employer], [place], [place] (for a complete listing please refer to this manual) and2. * Darrell Curry, and Rogerio, Electrodiagnostic Medicine, 2nd edition, 2002, [place], [place], [place]. 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 FACULTY: [facility] NORMAL REFERENCE VALUES FOR COMMON NERVE CONDUCTION STUDIES References used for this table from: 1. Noe and Ck, Manual of Nerve Conduction Studies, 2nd edition, 2006, [employer], [place], [place] (for a complete listing please refer to this manual) and2. * Darrell Curry, and Rogerio, Electrodiagnostic Medicine, 2nd edition, 2002, [place], [place], [place]. Skin temperature should be > 32 [...] Stool Performing Organization Address City/State/Zipcode Phone Number [facility] * XRAY SHOULDER 2 VIEWS [...] AM Performing Organization Address City/State/Zipcode Phone Number [facility] after 09/15/2017 Insurance Type Payer Benefit Subscriber ID Effective Phone Address Plan / Dates Group MEDICARE MEDICARE xxxxxxxxxxx 2012- [phone] [address] Present [id number] [place] [address] [place] MED[place] [id number] xxxxxxxxx 2013-P [phone] [place] resent [id number] MEDICARE [place], [place] BENEFICIAR [phone] Y
--- OUTSIDE RECORDS SUMMARY | 2018-09-17 08:54 | XMS REPORT | Summary of Care ---
Author Author [facility] Organization [facility] Address Unknown Phone Unavailable Encounter [facility] [place](CIARA) [id number] Date(s): 09/04/17 - 09/04/17 [facility] [address] Professional Services provided by [facility] [place] [address]- Encounter Diagnosis Right shoulder pain (Discharge Diagnosis) - 09/04/17 Discharge Disposition: Home or Self Care Attending Physician: Zoraida Levi MD Vital Signs Most recent to 1 2 oldest [Reference Range]: Temperature Oral 98.8 DegF 98.3 DegF [96.4-99.1 DegF] (09/04/17 5:41 PM) (09/04/17 1:53 PM) Blood Pressure 152/81 mmHg 147/86 mmHg [90-140/60-90 mmHg] *HI* *HI* (09/04/17 5:41 PM) (09/04/17 1:53 PM) Respiratory Rate 16 BRMIN 16 BRMIN [14-20 BRMIN] (09/04/17 5:41 PM) (09/04/17 1:53 PM) Peripheral Pulse 64 bpm 120 bpm Rate [60-100 bpm] (09/04/17 5:41 PM) *HI* (09/04/17 1:53 PM) Problem List Condition Effective Dates Status Health Status Informant Anemia(Confirmed) Resolved Back pain(Confirmed) Resolved Depression(Confirmed Resolved ) HTN Resolved (hypertension)(Confi rmed) Allergies, Adverse Reactions, Alerts Substance Reaction Severity Status Elavil Hives Active Medications acetaminophen-hydrocodone 325 mg-5 mg oral tablet 1 tab, Route: PO, Drug Form: TAB, Dosing Weight 82.727, kg, ONCE, STAT, Start da te: 09/04/17 15:52:00 CDT, Stop date: 09/04/17 15:52:00 CDT Notes: (Same as: [place] 325/5) Do not exceed 4gm/day of acetaminophen. Start Date: 09/04/17 Stop Date: 09/04/17 Status: Completed CeleBREX 200 mg, Route: PO, ONCE, Dosing Weight 82.727, kg, Start date: 09/04/17 15:56:00 CDT, Stop date: 09/04/17 15:56:00 CDT Start Date: 09/04/17 Stop Date: 09/04/17 Status: Completed diazepam 5 mg, 1 tab, Route: PO, Drug form: TAB, ONCE, Dosing Weight 82.727, kg, Priority : STAT, Start date: 09/04/17 15:54:00 CDT, Stop date: 09/04/17 15:54:00 CDT Notes: (Same as: Valium) Start Date: 09/04/17 Stop Date: 09/04/17 Status: Completed diazepam 5 mg, 1 tab, Route: PO, Drug form: TAB, ONCE, Dosing Weight 82.727, kg, Priority : STAT, Start date: 09/04/17 14:24:00 CDT, Stop date: 09/04/17 14:24:00 CDT Notes: (Same as: Valium) Start Date: 09/04/17 Stop Date: 09/04/17 Status: Completed ketOROLAC 30 mg, 1 mL, Route: IM, Drug form: INJ, ONCE, Dosing Weight 82.727, kg, Priority : STAT, Start date: 09/04/17 15:53:00 CDT, Stop date: 09/04/17 15:53:00 CDT Notes: (Same as:Toradol) IV bolus must be given >15 seconds. Give IM administration slowly and deeply into the muscle.Not for use > 4 days MEDICATION WASTE Product Size: 30 mgProduct Wasted: ___ mg Start Date: 09/04/17 Stop Date: 09/04/17 Status: Completed Results No data available for this section [...]
--- OUTSIDE RECORDS SUMMARY | 2018-09-17 08:54 | XMS REPORT | Summary of Care ---
Author Author [facility] Organization [facility] Address Unknown Phone Unavailable Encounter HQ [place](FIN) [id number] Date(s): 08/14/17 - 08/14/17 [facility] [address] [place] [phone] Discharge Disposition: Home or Self Care Attending Physician: Maddison Melgar Vital Signs No data available for this section Problem List Condition Effective Dates Status Health Status Informant Anemia(Confirmed) Resolved Back pain(Confirmed) Resolved Depression(Confirmed Resolved ) HTN Resolved (hypertension)(Confi rmed) Allergies, Adverse Reactions, Alerts Substance Reaction Severity Status Elavil Active Medications No data available for this [...]
--- OUTSIDE RECORDS SUMMARY | 2018-09-17 08:55 | XMS REPORT ---
[facility] Address Unknown Phone Unavailable Care Team Providers Care Tax Auditor Name Role Phone Unavailable Unavailable Problems This patient has no known problems. Allergies, Adverse Reactions, Alerts This patient has no known allergies or adverse reactions. Medications This patient has no known medications. Encounters Start Date/Time End Date/Time Encounter Type Admission Type Attending [facility] Facility Care Department Encounter ID 2018-10-11 00:00:00 2018-10-11 00:00:00 Outpatient [facility] [id number] 2018-08-30 08:53:22 2018-08-30 08:53:22 Outpatient [facility] [id number] 2018-08-26 13:44:41 2018-08-26 13:44:41 Outpatient [facility] [id number] 2018-08-26 00:00:00 2018-08-26 00:00:00 [facility]patient [facility] [id number] 2018-08-19 11:47:10 2018-08-19 11:47:10 [facility]patient [facility] [id number] 2018-08-06 00:00:00 2018-08-06 00:00:00 [facility]patient [facility] [id number] 2018-07-11 15:03:27 2018-07-11 15:03:27 [facility]patient [facility] [id number] 2018-07-04 14:55:02 2018-07-04 14:55:02 [facility]patient [facility] [id number] 2018-06-27 00:00:00 2018-06-27 00:00:00 [facility]patient [facility] [id number] 2018-06-20 15:59:48 2018-06-20 15:59:48 [facility] [id number] 2018-05-23 14:35:04 2018-05-23 14:35:04 [facility] [id number] 2018-05-16 00:00:00 2018-05-16 00:00:00 [facility] [id number] 2018-04-25 14:45:18 2018-04-25 14:45:18 [facility] [id number] 2018-04-04 15:10:32 2018-04-04 15:10:32 [facility] [id number] 2018-03-28 13:05:40 2018-03-28 13:05:40 [facility]patient [facility] [id number] 2018-03-14 15:53:15 2018-03-14 15:53:15 [facility] [id number] 2018-02-14 00:00:00 2018-02-14 00:00:00 [facility]patient [facility] [id number] 2018-02-04 08:29:00 2018-02-04 08:29:00 [facility] [id number] 2018-01-08 10:15:46 2018-01-08 10:15:46 [facility]patient [facility] [id number] 2018-01-08 00:00:00 2018-01-08 00:00:00 [facility]patient [facility] [id number] 2017-12-13 12:46:22 2017-12-13 12:46:22 [facility]patient [facility] [id number] 2017-10-26 08:50:47 2017-10-26 08:50:47 [facility]patient [facility] [id number] 2017-10-18 09:48:00 2017-10-18 09:48:00 [facility] [id number] 2017-10-03 08:12:39 2017-10-03 08:12:39 [facility]patient [facility] [id number] 2017-10-03 07:30:48 2017-10-03 07:30:48 [facility]patient [facility] [id number] 2017-09-18 00:00:00 2017-09-18 00:00:00 [facility]patient [facility] [id number] 2017-09-14 00:00:00 2017-09-14 00:00:00 [facility]patient [facility] [id number] 2017-09-07 15:46:09 2017-09-07 15:46:09 Outpatient [facility] [id number] 2017-09-05 09:17:25 2017-09-05 09:17:25 [facility]patient [facility] [id number] 2017-02-10 16:21:37 2017-02-10 16:21:37 Emergency [facility] [id number] 2017-02-10 16:09:46 2017-02-10 16:09:46 Emergency [facility] [id number] Results Test Description Test Time Test Comments Text Results Atomic Results Result Comments DUODENUM,BIOPSY 2017-10-05 11:16:00 RUN DATE: 10/05/17 [facility] PAGE 1 RUN TIME: 1116 Specimen Inquiry RUN USER: INTERFACE PATIENT: GAIL JAMISON LOC: RADHA U #: [id number] AGE/SX: 57/F ROOM: RE10/04/17[facility] DR: Cboy Aguirre MD : 60 BED: DIS: STATUS: [facility] TLOC: SPEC #: [id number] RECD: 10/04/17 STATUS: LYLE HOGUE #: [id number] KIRIT: 10/04/17 [facility] DR: Coby Aguirre MD ENTERED: 10/04/17 SP TYPE: BX DUODEN OTHR DR: Rob Chopra MD ORDERED: [place]: [place] [address] [place], [place] [address] MERISSA [address] [place] [address] Coby Aguirre MD [address] [place] [address] PROCEDURES: GROSS (10/05/17-1016) TISSUES: 1. DUODENUM, NOS - BX 2. BODY BIOPSY OF STOMACH 3. ANTRUM - BX CLINICAL HISTORY COLLECTION DATE: 10/04/2017 EPIGASTRIC DISCOMFORT POST-OP DIAGNOSIS: MILD GASTRITIS, HIATAL HERNIA FINAL DIAGNOSIS Duodenum, biopsy: DUODENAL MUCOSA, NO PATHOLOGIC ALTERATION Body of stomach, biopsy: MILD CHRONIC INFLAMMATION, GASTRIC MUCOSA NO INTESTINAL METAPLASIA SEEN NEGATIVE FOR HELICOBACTER PYLORI, GIEMSA CONTROL STAINS APPROPRIATELY NEGATIVE FOR MALIGNANCY Antrum, biopsy: REACTIVE GASTROPATHY WITH PATCHY MILD CHRONIC INFLAMMATION NO INTESTINAL METAPLASIA SEEN NEGATIVE FOR HELICOBACTER PYLORI, GIEMSA CONTROL STAINS APPROPRIATELY NEGATIVE FOR MALIGNANCY CONTINUED ON NEXT PAGE RUN DATE: 10/05/17 [facility] PAGE 2 RUN TIME: 1116 Specimen Inquiry RUN USER: INTERFACE SPEC #: [id number] PATIENT: YAQUELINGAIL #[id number] (Co nt inued) FINAL DIAGNOSIS (Continued) PIO/rae Posada [id number], [id number] MACROSCOPIC Specimen (1) is received in formalin, labeled with the patient's name, identified as "duodenum", and consists of pink biopsy tissue measuring 0.3 cm in aggregate, submitted as (1). Specimen (2) is received in formalin, labeled with the patient's name, identified as "body", and consists of frost biopsy tissue measuring 0.35 cm in aggregate, submitted as (2) for H E and giemsa stains. Specimen (3) is received in formalin, labeled with the patient's name, identified as "antrum", and consists of frost-pink biopsy tissue measuring 0.25 cm in aggregate, submitted as (3) for H E and giemsa stains. [place] [address] (p)[phone] MICROSCOPIC MICROSCOPIC PERFORMED AT [facility] All of the stains, including any controls performed, stain appropriately. [facility] [address] [place] [address] (p)[phone] PERFORMING SITE Diagnosis performed at: [facility], [place] [address] CONTINUED ON NEXT PAGE RUN DATE: 10/05/17 [facility] P AGE 3 RUN TIME: 1116 Specimen Inquiry RUN USER: INTERFACE SPEC #: [id number] PATIENT: GAIL JAMISON #[id number] (Continued) Signed SIGNATURE ON FILE FryeGail 10/05/17 1116 END OF REPORT
--- OUTSIDE RECORDS SUMMARY | 2018-09-17 08:55 | XMS REPORT | Summary of Care ---
Author Author [facility] Organization [facility] Address Unknown Phone Unavailable Encounter HQ [place](CIARA) [id number] Date(s): 06/11/15 - 06/11/15 [facility] [address] [employer] Services provided by [facility] [employer] [facility] [place] [address]- Discharge Diagnosis: Closed L1 vertebral fracture Discharge Disposition: Home Attending Physician: Radha Mclaughlin MD Vital Signs 1 2 3 Most recent to oldest [Reference Range]: 172.72 cm (06/11/15 1:50 PM) Height 97.8 DegF (06/11/15 7:55 PM) 98.1 DegF (06/11/15 5:32 PM) 97.3 DegF (06/11/15 1:50 PM) Temperature Oral [96.4-99.1 DegF] 108/69 mmHg (06/11/15 7:55 PM) 140/92 mmHg (06/11/15 5:32 PM) 119/77 mmHg (06/11/15 1:50 PM) Blood Pressure [90-140/60-90 mmHg] 18 BRMIN (06/11/15 7:55 PM) 18 BRMIN (06/11/15 5:32 PM) 18 BRMIN (06/11/15 1:50 PM) Respiratory Rate [14-20 BRMIN] 61 bpm (06/11/15 7:55 PM) 71 bpm (06/11/15 5:32 PM) 88 bpm (06/11/15 1:50 PM) Peripheral Pulse Rate [60-100 bpm] 95.455 kg (06/11/15 1:50 PM) Weight 32 m2 (06/11/15 1:50 PM) Body Mass Index Problem List Condition Effective Dates Status Health Status Informant Anemia(Confirmed) Resolved Back pain(Confirmed) Resolved Depression(Confirmed Resolved ) HTN Resolved (hypertension)(Confi rmed) Allergies, Adverse Reactions, Alerts Substance Reaction Severity Status Elavil Active Medications Ativan 1 mg, 0.5 mL, Route: IVP, Drug form: INJ, ONCE, Dosing Weight 95.455, kg, Priori ty: STAT, Start date: 06/11/15 14:56:00 CDT, Stop date: 06/11/15 14:56:00 CDT Notes: (Same as: Ativan) Start Date: 06/11/15 Stop Date: 06/11/15 Status: Completed Dilaudid 0.5 mg, Route: IVP, ONCE, Dosing Weight 95.455, kg, Priority: STAT, Start date: 06/11/15 17:49:00 CDT, Stop date: 06/11/15 17:49:00 CDT Start Date: 06/11/15 Stop Date: 06/11/15 Status: Completed Isolyte S PH-7.4 (Bolus) IV 1,000 mL, Route: IV, Dosing Weight 95.455, kg, ONCE, Start date: 06/11/15 14:16: 00 CDT, Stop date: 06/11/15 14:16:00 CDT Start Date: 06/11/15 Stop Date: 06/11/15 Status: Completed morphine Sulfate 4 mg, 1 mL, Route: IVP, Drug form: INJ, ONCE, Dosing Weight 95.455, kg, Priority : STAT, Start date: 06/11/15 14:12:00 CDT, Stop date: 06/11/15 14:12:00 CDT Notes: (Same as:MORPhine Sulfate) Start Date: 06/11/15 Stop Date: 06/11/15 Status: Completed ondansetron 4 mg, 2 mL, Route: IVP, Drug form: INJ, ONCE, Dosing Weight 95.455, kg, Priority : STAT, Start date: 06/11/15 14:12:00 CDT, Stop date: 06/11/15 14:12:00 CDT Notes: (Same as: Viktor) MEDICATION WASTE Product Size: 4 mgProduct Was miles: ___ mg Start Date: 06/11/15 Stop Date: 06/11/15 Status: Completed Saline Flush 0.9% 10 mL, Route: MISC, Drug Form: INJ, Dosing Weight 95.455, kg, PRN, PRN Line Flus h, Start date: 06/11/15 14:12:00 CDT, Duration: 30 day, Stop date: 07/11/15 14:1 1:00 CDT Notes: (Same as: BD Posiflush) Start Date: 06/11/15 Stop Date: 06/11/15 Status: Discontinued tramadol 50 mg oral tablet 50 mg=1 tab, PO, Q6H, PRN Pain, X 10 day, # 40 tab, 0 Refill(s) Start Date: 06/11/15 Stop Date: 06/21/15 Status: Ordered Visipaque 320mg/ml 99 mL, Route: IVP, Drug Form: SOLN, Dosing Weight 95.455, kg, ONCALL, STAT, Star t date: 06/11/15 16:03:00 CDT, Duration: 1 doses or times, Dose=2.2ml/kg, Max d srp=256az -- "To be infused by Radiology Staff ONLY" Start Date: 06/11/15 Stop Date: 06/11/15 Status: Completed Results BLOOD BANK RESULTS Most recent to 1 oldest [Reference Range]: ABO/Rh O POS *Unknown* (06/11/15 3:15 PM) Antibody Scrn Negative (06/11/15 3:15 PM) ELECTROLYTES Most recent to 1 oldest [Reference Range]: Sodium Lvl [135-145 136 mEq/L mEq/L] (06/11/15 2:40 PM) Potassium Lvl 3.8 mEq/L [3.5-5.1 mEq/L] (06/11/15 2:40 PM) Chloride Lvl [95-109 102 mEq/L mEq/L] (06/11/15 2:40 PM) CO2 [24-32 mEq/L] 24 mEq/L (06/11/15 2:40 PM) AGAP [10.0-20.0 13.8 mEq/L mEq/L] (06/11/15 2:40 PM) CHEM PANEL Most recent to 1 oldest [Reference Range]: Creatinine Lvl 1.03 mg/dL [0.50-1.40 mg/dL] (06/11/15 2:40 PM) eGFR 71 mL/min/1.73m2 1 *NA* (06/11/15 2:40 PM) BUN [7-22 mg/dL] 12 mg/dL (06/11/15 2:40 PM) Glucose Lvl [70-99 106 mg/dL mg/dL] *HI* (06/11/15 2:40 PM) Calcium Lvl 9.3 mg/dL [8.5-10.5 mg/dL] (06/11/15 2:40 PM) Lactic Acid Lvl 1.5 mMol/L [0.5-2.2 mMol/L] (06/11/15 2:40 PM) 1Result Comment: The eGFR is calculated using [...] be mul tiplied by the estimated BMI. TOXICOLOGY Most recent to 1 oldest [Reference Range]: Etoh (%) <.003 % *NA* (06/11/15 2:40 PM) Ethanol Lvl <3 mg/dL *NA* (06/11/15 2:40 PM) HEMATOLOGY Most recent to 1 oldest [Reference Range]: WBC [3.7-10.4 K/CMM] 5.6 K/CMM (06/11/15 2:40 PM) RBC [4.20-5.40 4.64 M/CMM M/CMM] (06/11/15 2:40 PM) Hgb [12.0-16.0 g/dL] 15.3 g/dL (06/11/15 2:40 PM) Hct [36.0-48.0 %] 46.5 % (06/11/15 2:40 PM) MCV [80.0-98.0 fL] 100.2 fL *HI* (06/11/15 2:40 PM) MCH [27.0-31.0 pg] 32.9 pg *HI* (06/11/15 2:40 PM) MCHC [32.0-36.0 32.8 g/dL g/dL] (06/11/15 2:40 PM) RDW [11.5-14.5 %] 12.7 % (06/11/15 2:40 PM) Platelet [133-450 233 K/CMM K/CMM] (06/11/15 2:40 PM) MPV [7.4-10.4 fL] 7.3 fL *LOW* (06/11/15 2:40 PM) Segs [45.0-75.0 %] 55.5 % (06/11/15 2:40 PM) Lymphocytes 36.6 % [20.0-40.0 %] (06/11/15 2:40 PM) Monocytes [2.0-12.0 6.3 % %] (06/11/15 2:40 PM) Eosinophils [0.0-4.0 0.6 % %] (06/11/15 2:40 PM) Basophils [0.0-1.0 1.0 % %] (06/11/15 2:40 PM) Segs-Bands # 3.1 K/CMM [1.5-8.1 K/CMM] (06/11/15 2:40 PM) Lymphocytes # 2.0 K/CMM [1.0-5.5 K/CMM] (06/11/15 2:40 PM) Monocytes # [0.0-0.8 0.4 K/CMM K/CMM] (06/11/15 2:40 PM) Basophils # [0.0-0.2 0.1 K/CMM K/CMM] (06/11/15 2:40 PM) Macrocyte [None 1+ Seen] *ABN* (06/11/15 2:40 PM) Rapid TEG Sample Citrated Whole Blood Type (06/11/15 2:40 PM) ACT (TEG) Rapid 113 seconds [86-118 seconds] (06/11/15 2:40 PM) Split Point Rapid 0.6 minutes *NA* (06/11/15 2:40 PM) R-time [0.4-0.7 0.7 minutes minutes] (06/11/15 2:40 PM) K-time [0.6-2.3 0.8 minutes minutes] (06/11/15 2:40 PM) Angle [64-80 79 degrees degrees] (06/11/15 2:40 PM) Max Amp [52-71 mm] 66 mm (06/11/15 2:40 PM) G-value [5.0-11.6 K 9.9 K d/sc d/sc] (06/11/15 2:40 PM) Estimated % Lysis 2.7 % Rapid [0.0-7.5 %] (06/11/15 2:40 PM) Immunizations No data available for this section Procedures No data available for this section Social History Social History Type Response Smoking Status Never smoker; Exposure to Tobacco Smoke None; Cigarette Smoking Last 365 Days No; Reg Smoking Cessation Counseling No Assessment and Plan No data available for this section
--- OUTSIDE RECORDS SUMMARY | 2018-09-17 08:55 | XMS REPORT ---
Author Author Admin, [place] Organization [facility] Address [address] [address] Phone Allergies, Adverse Reactions, Alerts Allergy Name Reaction Description Start Date Severity Status Provider ELJUANITA Severe Active Willem Deluna DDS Conditions or Problems Problem Name Problem Code Onset Date Status Entry Date Provider Comment Standard Description Annotate No Known Problems Willem Deluna DDS Medication List Medication Instructions Start Date Stop Date Generic Name NDC Status Provider Patient Instruction TYLENOL WITH CODEINE #3 300-30 MG ORAL TABLET 1 - 2 by mouth every 4 - 6 hours as needed ACETAMINOPHEN-CODEINE 43683235320 Active Willem Deluna DDS Active TYLENOL WITH CODEINE #3 300-30 MG ORAL TABLET 1 by mouth every 4 - 6 hours as needed ACETAMINOPHEN-CODEINE 94719750498 Active Willem Deluna DDS Active ALBUTEROL SULFATE (2.5 MG/3ML) 0.083% INHALATION NEBULIZATION SOLUTION 1 via Hand held neb every 4 - 6 hours as needed ALBUTEROL SULFATE 70505138493 Active Willem Deluna DDS Active ASPIRIN 81 MG ORAL TABLET DELAYED RELEASE 1 by mouth every day ASPIRIN 93182789929 Active Willem Deluna DDS Active LEVOCETIRIZINE DIHYDROCHLORIDE 5 MG ORAL TABLET LEVOCETIRIZINE DIHYDROCHLORIDE 80330340792 Active Willem Deluna DDS Active LEVOTHYROXINE SODIUM 150 MCG ORAL TABLET One tab by mouth daily LEVOTHYROXINE SODIUM 19218610570 Active Willem Deluna DDS Active LIPITOR 40 MG ORAL TABLET 1 by mouth every pm ATORVASTATIN CALCIUM 31235690868 Active Willem Deluna DDS Active PANTOPRAZOLE SODIUM 40 MG ORAL TABLET DELAYED RELEASE PANTOPRAZOLE SODIUM 16917179710 Active Willem Deluna DDS Active AMOXICILLIN 500 MG ORAL CAPSULE 1 by mouth Q12 hrs AMOXICILLIN 500 MG ORAL CAPSULE 766056 AMOXICILLIN Inactive METHOCARBAMOL 1 by mouth every 8 hours as needed METHOCARBAMOL Inactive AMOXICILLIN 500 MG ORAL CAPSULE 1 by mouth Q12 hrs AMOXICILLIN 13546077924 No Longer Active Willem Deluna DDS Active METHOCARBAMOL 1 by mouth every 8 hours as needed METHOCARBAMOL No Longer Active Willem Deluna DDS Active Vital Signs Date Name Value Unit Range Description blood pressure, diastolic 86 mm[Hg] BP browning blood pressure, systolic 138 mm[Hg] BP sys pulse rate E&M 61 /min Heart rate blood pressure, diastolic 90 mm[Hg] BP browning blood pressure, systolic 136 mm[Hg] BP sys pulse rate E&M 69 /min Heart rate blood pressure, diastolic 66 mm[Hg] BP browning blood pressure, systolic 112 mm[Hg] BP sys pulse rate E&M 67 /min Heart rate blood pressure, diastolic 104 mm[Hg] BP browning blood pressure, systolic 168 mm[Hg] BP sys pulse rate E&M 56 /min Heart rate blood pressure, diastolic 86 mm[Hg] BP browning blood pressure, systolic 134 mm[Hg] BP sys pulse rate E&M 74 /min Heart rate blood pressure, diastolic 79 mm[Hg] BP rbowning blood pressure, systolic 122 mm[Hg] BP sys pulse rate E&M 65 /min Heart rate
--- OUTSIDE RECORDS SUMMARY | 2018-09-17 08:55 | XMS REPORT ---
Author Author Admin, [place] Organization [facility] Address [address] [address] Phone Allergies, Adverse Reactions, Alerts Allergy Name [...] 4 - 6 hours as needed ACETAMINOPHEN-CODEINE 87050996876 Active Willem Deluna DDS Active TYLENOL WITH CODEINE #3 300-30 MG ORAL TABLET 1 by mouth every 4 - 6 hours as needed ACETAMINOPHEN-CODEINE 39192985073 Active Willem Deluna DDS Active ALBUTEROL SULFATE (2.5 MG/3ML) 0.083% INHALATION NEBULIZATION SOLUTION 1 via Hand held neb every 4 - 6 hours as needed ALBUTEROL SULFATE 88512075675 Active Willem Deluna DDS Active ASPIRIN 81 MG ORAL TABLET DELAYED RELEASE 1 by mouth every day ASPIRIN 56365675638 Active Willem Deluna DDS Active LEVOCETIRIZINE DIHYDROCHLORIDE 5 MG ORAL TABLET LEVOCETIRIZINE DIHYDROCHLORIDE 97030145265 Active Willem Fieldsley DDS Active LEVOTHYROXINE SODIUM 150 MCG ORAL TABLET One tab by mouth daily LEVOTHYROXINE SODIUM 61320892947 Active Willem Deluna DDS Active LIPITOR 40 MG ORAL TABLET 1 by mouth every pm ATORVASTATIN CALCIUM 92626259561 Active Willem Deluna DDS Active PANTOPRAZOLE SODIUM 40 MG ORAL TABLET DELAYED RELEASE PANTOPRAZOLE SODIUM 34423668960 Active Willem Deluna DDS Active AMOXICILLIN 500 MG ORAL CAPSULE 1 by mouth Q12 hrs AMOXICILLIN 500 MG ORAL CAPSULE 967030 AMOXICILLIN Inactive METHOCARBAMOL 1 by mouth every 8 hours as needed METHOCARBAMOL Inactive AMOXICILLIN 500 MG ORAL CAPSULE 1 by mouth Q12 hrs AMOXICILLIN 36266656342 No Longer Active Willem Deluna DDS Active METHOCARBAMOL 1 by mouth every 8 hours as needed METHOCARBAMOL No Longer Active Willem Deluna DDS Active Vital Signs Date Name Value Unit Range Description blood pressure, diastolic 90 mm[Hg] BP browning [...] rate blood pressure, diastolic 79 mm[Hg] BP browning blood pressure, systolic 122 mm[Hg] BP sys pulse rate E&M 65 /min Heart rate
--- OUTSIDE RECORDS SUMMARY | 2018-09-17 08:55 | XMS REPORT ---
Author Author Admin, [place] Organization [facility] Address Unknown Phone Unavailable Allergies, Adverse Reactions, Alerts Allergy Name Reaction Description Start Date Severity Status Provider AMBER Severe Active Willem Deluna DDS Conditions or [...] 4 - 6 hours as needed ACETAMINOPHEN-CODEINE 94700543221 Active Willem Deluna DDS Active TYLENOL WITH CODEINE #3 300-30 MG ORAL TABLET 1 by mouth every 4 - 6 hours as needed ACETAMINOPHEN-CODEINE 28925396773 Active Willem Deluna DDS Active ALBUTEROL SULFATE (2.5 MG/3ML) 0.083% INHALATION NEBULIZATION SOLUTION 1 via Hand held neb every 4 - 6 hours as needed ALBUTEROL SULFATE 29253770792 Active Willem Deluna DDS Active ASPIRIN 81 MG ORAL TABLET DELAYED RELEASE 1 by mouth every day ASPIRIN 47083265274 Active Willem Deluna DDS Active LEVOCETIRIZINE DIHYDROCHLORIDE 5 MG ORAL TABLET LEVOCETIRIZINE DIHYDROCHLORIDE 71804433861 Active Willem Deluna DDS Active LEVOTHYROXINE SODIUM 150 MCG ORAL TABLET One tab by mouth daily LEVOTHYROXINE SODIUM 48020720312 Active Willem Deluna DDS Active LIPITOR 40 MG ORAL TABLET 1 by mouth every pm ATORVASTATIN CALCIUM 50983516854 Active Willem Fieldsley DDS Active PANTOPRAZOLE SODIUM 40 MG ORAL TABLET DELAYED RELEASE PANTOPRAZOLE SODIUM 53103624000 Active Willem Deluna DDS Active AMOXICILLIN 500 MG ORAL CAPSULE 1 by mouth Q12 hrs AMOXICILLIN 500 MG ORAL CAPSULE 780763 AMOXICILLIN Inactive METHOCARBAMOL 1 by mouth every 8 hours as needed METHOCARBAMOL Inactive AMOXICILLIN 500 MG ORAL CAPSULE 1 by mouth Q12 hrs AMOXICILLIN 95862303924 No Longer Active Willem Deluna DDS Active METHOCARBAMOL 1 by mouth every 8 hours as needed METHOCARBAMOL No Longer Active Willem Deluna DDS Active Vital Signs Date Name Value Unit Range Description blood pressure, diastolic 66 mm[Hg] BP browning [...]
[2018-09-17 14:15] VITALS: BP 144/80
== END | disposition home or self-care (01) ==
LOC: OR 08:33
PROVIDERS: ATTEND Internal Medicine Gastroenterology
DX: Z12.11 Encounter for screening for malignant neoplasm of colon (principal); K29.70 Gastritis, unspecified, without bleeding; K44.9 Diaphragmatic hernia without obstruction or gangrene; K21.9 Gastro-esophageal reflux disease without esophagitis; K58.9 Irritable bowel syndrome, unspecified; R79.89 Other specified abnormal findings of blood chemistry; K64.8 Other hemorrhoids; K86.89 Other specified diseases of pancreas; I25.10 Atherosclerotic heart disease of native coronary artery without angina pectoris; I25.2 Old myocardial infarction; D64.9 Anemia, unspecified; R00.1 Bradycardia, unspecified; I10 Essential (primary) hypertension; J45.909 Unspecified asthma, uncomplicated; E03.9 Hypothyroidism, unspecified; F41.9 Anxiety disorder, unspecified; F32.9 Major depressive disorder, single episode, unspecified; F17.200 Nicotine dependence, unspecified, uncomplicated; Z01.810 Encounter for preprocedural cardiovascular examination; Z01.812 Encounter for preprocedural laboratory examination; Z88.8 Allergy status to other drugs, medicaments and biological substances; Z86.73 Personal history of transient ischemic attack (TIA), and cerebral infarction without residual deficits
CPT/HCPCS: 36415; 43239; 45380; 85025; 88305; 88312; 93005; J2001; J2250; J2704; J3010; 45378

== ENCOUNTER → 2019-01-28 | Outpatient (CLI) | payer MEDICARE ==
[~2019-01-28] MED LIST changes: -FENTANYL CITRATE/PF 100MCG/2 ML INJ ONE; -LIDOCAINE HCL 2% LOCAL INJ 5 ML SDV VIAL INJ ONE; -MIDAZOLAM HCL 2 MG/2 ML VIAL ONE; -PROPOFOL IV EMULSION 10 MG/ML 20 ML VIAL ONE
== END ==
LOC: LAB 10:30
PROVIDERS: ATTEND Internal Medicine Gastroenterology
DX: K21.9 Gastro-esophageal reflux disease without esophagitis (principal)